=== PATIENT | male | born 1955 | race Caucasian/White ===

== ENCOUNTER 2018-10-04 13:23 | Day surgery (SDC) | payer OTHER ==
[~2018-10-04] VITALS: Ht 185.4 cm; Wt 106.6 kg
[~2018-10-04 13:23] MED LIST: GLYMET5 PO; ISOMON30 PO; LOSHYD PO; PIOG15 PO; PRAV10 PO; TAMS.4ER PO
[2018-10-04] MEDS ORDERED: AMLO10 PO (14:44)
[2018-10-04] MEDS ORDERED: COLACE CLEAR50 MG PO (14:44)
[2018-10-04] MEDS ORDERED: ATOR40TA PO (14:45)
[2018-10-04] MEDS ORDERED: JARDIANCE25 MG PO (14:45)
[2018-10-04] MEDS ORDERED: OXYC5 (14:46)
--- NOTE | 2018-10-04 15:41 | NUR ---
10/04/18 1541 Brit Grossman (Mary CASE DELAYED R/T INSTRUMENT CLEANING. LIDOCAINE GEL SLURRY HELD PER DR. SANDERS'S ORDERS. LIDOCAINE GEL SLURRY RESTARTED AND ADMINISTERED AT 1538 [address] SANDERS'S ORDERS.
== END 2018-10-04 17:10 | disposition home or self-care (01) ==
LOC: ORSCSDS 13:23
PROVIDERS: Ophthalmology
PROC: 08RK3JZ Replacement of Left Lens with Synthetic Substitute, Percutaneous Approach (ICD-10-PCS; principal; 2018-10-04 15:00)
DX: H25.12 Age-related nuclear cataract, left eye (principal); H21.81 Floppy iris syndrome; E11.36 Type 2 diabetes mellitus with diabetic cataract; I10 Essential (primary) hypertension; E66.9 Obesity, unspecified; F17.210 Nicotine dependence, cigarettes, uncomplicated; Z68.31 Body mass index [BMI] 31.0-31.9, adult; Z79.899 Other long term (current) drug therapy
CPT/HCPCS: 82947; J2001; J2250; J3010; J7120; V2632

== ENCOUNTER 2019-07-21 03:06 | Inpatient (IN) | payer OTHER ==
[~2019-07-21] VITALS: Ht 180.3 cm; Wt 86.4 kg
[~2019-07-21 03:06] MED LIST changes: +AMLO10 PO; +ATOR40TA PO; +COLACE CLEAR50 MG PO; +JARDIANCE25 MG PO; +OXYC5 PO
[2019-07-21] MEDS ORDERED: METF500 PO (03:48)
[2019-07-21] MEDS ORDERED: SENN187 PO (03:48)
[2019-07-21] MEDS ORDERED: GLYB2.5 PO (03:48)
[2019-07-21 03:50] LABS: BASOPHILS ABSOLUTE AUTO 0.05 K/mm3 (0.00-0.23); BASOPHILS PERCENT AUTO 0 % (0-2); EOSINOPHILS ABSOLUTE AUTO 0.11 K/mm3 (0.00-0.68); EOSINOPHILS PERCENT AUTO 1 % (0-6); Hematocrit 44.6 % (37.0-53.0); Hemoglobin 15.5 g/dL (13.5-17.5); IMMATURE GRAN ABSOLUTE AUTO 0.02 K/mm3 (0.00-0.10); IMMATURE GRAN PERCENT AUTO 0 % (0-1); LYMPHOCYTES ABSOLUTE AUTO 1.21 K/mm3 (0.84-5.20); LYMPHOCYTES PERCENT AUTO 10 % (21-46); MONOCYTES ABSOLUTE AUTO 1.16 K/mm3 (0.16-1.47); MONOCYTES PERCENT AUTO 9 % (4-13); Mean Corpuscular HGB 30.9 pg (26.0-34.0); Mean Corpuscular HGB Conc 34.8 g/dL (31.5-36.5); Mean Corpuscular Volume 89 fL (80-100); Mean Platelet Volume 10.8 fL (9.1-12.4); NEUTROPHILS ABSOLUTE AUTO 10.07 K/mm3 (1.96-9.15); NEUTROPHILS PERCENT AUTO 80 % (41-73); Platelet Count 195 K/mm3 (150-400); RDW Coefficient Variation 11.9 % (11.7-14.2); RDW Standard Deviation 38.7 fL (35.1-46.3); Red Blood Cell Count 5.01 M/mm3 (4.30-5.90); White Blood Cell Count 12.62 K/mm3 (4.00-11.30)
[2019-07-21] MEDS ORDERED: LOSARTAN-HCTZ1 EAC1 PO (03:56)
[2019-07-21 04:10] LABS: Alanine Aminotransfer (ALT/SGP 40 U/L (12-78); Albumin, Blood 2.9 g/dL (3.4-5.0); Albumin/Globulin Ratio 0.7 (0.8-1.8); Alk Phos 110 U/L (50-136); Anion Gap 8 mmol/L (6-16); Aspartate Aminotrans (AST/SGOT 18 U/L (12-37); Bilirubin, Total 0.8 mg/dL (0.1-1.0); Blood Urea Nitrogen 18 mg/dL (8-24); Bun/Creatinine Ratio 18.6 (12.0-20.0); CO2, Blood 27 mmol/L (21-32); Calcium, Blood 8.7 mg/dL (8.5-10.1); Chloride, Blood 102 mmol/L (98-108); Creatinine, Blood 0.97 mg/dL (0.60-1.20); Globulin, Blood 3.9 g/dL (2.2-4.0); Glomerular Filtration Rate >60 (60-); Glucose, Blood 286 mg/dL (70-99); Potassium, Blood 3.8 mmol/L (3.5-5.5); Sodium, Blood 137 mmol/L (136-145); Total Protein, Blood 6.8 g/dL (6.4-8.2)
--- NOTE | 2019-07-21 09:51 | NUR ---
Echocardiogram completed.
[2019-07-21 15:08] LABS: Source, Urine Clean Catch
[2019-07-21 15:13] LABS: Appearance, Urine Clear (Clear); Bilirubin, Urine Neg (Neg); Blood, Urine 2+ (Neg); Color, Urine Yellow (P-Yellow); Glucose Qualitative, Urine 4+ (Neg); Ketones, Urine 1+ (Neg); Leukocyte Esterase, Urine Neg (Neg); Nitrite, Urine Neg (Neg); Protein, Urine 3+ (Neg); Urobilinogen, Urine NORM (Normal)
[2019-07-21 15:37] LABS: Bacteria Rare /hpf; Hyaline Casts 0-2 /lpf (0-2); Red Blood Cells, Urine 0-2 /hpf (0-2); Squamous Epithelial Cells Few /hpf (Few); White Blood Cells, Urine 0-2 /hpf (0-5)
--- NOTE | 2019-07-21 18:27 | NUR ---
SHIFT SUMMARY PT ALERT AND ORIENTED. BP ELEVATED, BUT ORDERS NOT TO DECREASE QUICKLY DUE TO EMBOLIC STROKE. HR NSR. PT HAVING SPASTIC MOVEMENT TO LEFT LEG AND LEFT ARM, BUT NO VOLUNTARY MOVEMENT. RIGHT SIDE HAS NORMAL STRENGTH AND MOVEMENT. PT UNABLE TO SIT UP ON HIS OWN. PT REPOSITIONED NEEDED. PT WAS SUPPOSED TO HAVE MRI THIS EVENING, BUT ONCE PT WENT DOWN TO MRI HE VOMITTED. PT BROUGHT BACK AND SEMICONDUCTOR TECHNICIAN REPORTS HE WILL TRY [facility] TOMORROW. WILL CONTINUE TO MONITOR CLOSELY AND REPORT TO ONCOMING RN. CALL LIGHT IN REACH.
[2019-07-22 03:42] LABS: Hematocrit 43.5 % (37.0-53.0); Mean Corpuscular HGB 30.5 pg (26.0-34.0); Mean Corpuscular HGB Conc 34.5 g/dL (31.5-36.5); Mean Corpuscular Volume 88 fL (80-100); Mean Platelet Volume 11.2 fL (9.1-12.4); Platelet Count 213 K/mm3 (150-400); RDW Coefficient Variation 12.3 % (11.7-14.2); Red Blood Cell Count 4.92 M/mm3 (4.30-5.90); White Blood Cell Count 11.79 K/mm3 (4.00-11.30)
[2019-07-22 04:03] LABS: Alanine Aminotransfer (ALT/SGP 34 U/L (12-78); Albumin, Blood 2.8 g/dL (3.4-5.0); Albumin/Globulin Ratio 0.7 (0.8-1.8); Alk Phos 104 U/L (50-136); Anion Gap 6 mmol/L (6-16); Aspartate Aminotrans (AST/SGOT 25 U/L (12-37); Bilirubin, Total 0.7 mg/dL (0.1-1.0); Blood Urea Nitrogen 19 mg/dL (8-24); Bun/Creatinine Ratio 19.3 (12.0-20.0); CHOL/HDL RATIO 4.8; CO2, Blood 28 mmol/L (21-32); Calcium, Blood 8.7 mg/dL (8.5-10.1); Chloride, Blood 100 mmol/L (98-108); Cholesterol 190 mg/dL (50-200); Creatinine, Blood 0.98 mg/dL (0.60-1.20); Globulin, Blood 3.9 g/dL (2.2-4.0); Glomerular Filtration Rate >60 (60-); Glucose, Blood 341 mg/dL (70-99); HDL Cholesterol 40 mg/dL (>39); Low Density Lipoprotein Chol 122 mg/dL (0-110); Potassium, Blood 3.7 mmol/L (3.5-5.5); Sodium, Blood 134 mmol/L (136-145); Total Protein, Blood 6.7 g/dL (6.4-8.2); Triglycerides 141 mg/dL (30-160); Very Low Density Lipoprot Chol 28 mg/dL (6-32)
--- NOTE | 2019-07-22 06:38 | NUR ---
alert at base line, keeps asking if it is dinner time yet, have provided snacks and discussed the current time of day, pt called and asked her to help him move from the chair to the bed when he was already in the bed, he als stated that he thought he was home, call light in reach, rm air, will continue to monitor and treat unti share bsr with pt and staff
--- NOTE | 2019-07-22 17:58 | NUR ---
SHIFT SUMMARY PT ALERT AND ORIENTED. VS STABLE. BP IMPROVED THIS EVENING. HR NSR. PT STILL HAVING LEFT SIDED WEAKNESS UNCHANGED SINCE INITIAL ASSESSMENT. PT ABLE TO WORK WITH PHYSICAL THERAPY AND OT TODAY. PT WENT DOWN TO MRI THIS SHIFT. PT AWAITING RESULTS. WILL CONTINUE TO MONITOR AND REPORT TO ONCOMING RN. CALL LIGHT IN REACH. FAMILY AT BEDSIDE.
--- NOTE | 2019-07-22 19:43 | NUR ---
PATIENT GAVE PERMISSION TO VIEW CHART AND PATIENT CARE.
--- NOTE | 2019-07-23 07:08 | NUR ---
just treated for leg pain, anxious r/continuing treatment and what might be needed, call light in reach, saline locked, room air, L side remains flacid but warm with good profusion, alert and orintated at baseline, just finished bsr with returning day staff who assisted pt to straigten up bedding
--- NOTE | 2019-07-23 12:21 | NUR ---
UPDATE PT ALERT AND ORIENTED. VS STABLE. BP IMPROVED FROM THIS AM. CGB ELEVATED AND NEW ORDERS FOR LANTUS PROVIDED. PT AND EDUCATED ON NEW DIAGNOSIS OF STROKE. STATUS CHANGED TO MEDICAL. REPORT CALLED TO MEDICAL FLOOR RN. PT TAKEN UP BY BED.
--- NOTE | 2019-07-23 12:34 | NUR ---
TRANSFER- PT ARRIVED TO ROOM 361 VIA BED FROM U 16. PT A/O, PLEASANT AND COOPERATIVE. PT REPORTS 5/10 PAIN TO LEFT SIDE, NO OTHER COMPLAINTS. LS CLEAR, ON RA. HRR. LEFT ARM WITH SLIGHT MOVEMENT TO FINGERS, LEFT LEG FLACCID WITH SLIGHT MOVEMENT TO TOES. MOUTH SYMMETRICAL. SPEECH NORMAL. PT ORIENTED TO ROOM AND CALL SYSTEM, CALL LIGHT IN REACH.
--- NOTE | 2019-07-23 16:23 | NUR ---
PT WITH BLOOD GLUCOSE OF 495, PT CURRENTLY ON HUMALOG SAUNDRA WITH LANTUS STARTED THIS AM. DR CADE CALLED AND NOTIFIED, PER DR CADE SHE WILL ADJUST INSULINS. DR CADE ALSO NOTIFIED OF BP OF 171/78, SHE REPORTS SHE WILL LOOK OVER THE ORDERS.
--- NOTE | 2019-07-23 17:40 | NUR ---
SHIFT SUMMARY- PT A/OX3, FORGETUL AT TIMES AND OCC SLOW TO RESPOND. PT WITH LEFT SIDE FLACCID WITH LITTLE MOVEMENE TO TOES AND FINGERS. SPEECH NORMAL AND MOUTH SYMMETRICAL. LS CLEAR, ON RA. HRR. PRN HYDRALAZINE GIVEN X1. PT BLOOD GUCOSE 495 WITH DINNER, INSULINS ADJUSTED PER DR CADE. PT AWAITING SNF BED POSSIBLY TOMORROW.
[2019-07-24 04:53] LABS: Albumin, Blood 2.8 g/dL (3.4-5.0); Anion Gap 5 mmol/L (6-16); Blood Urea Nitrogen 23 mg/dL (8-24); Bun/Creatinine Ratio 24.8 (12.0-20.0); CO2, Blood 29 mmol/L (21-32); Calcium, Blood 8.9 mg/dL (8.5-10.1); Chloride, Blood 97 mmol/L (98-108); Creatinine, Blood 0.93 mg/dL (0.60-1.20); Glomerular Filtration Rate >60 (60-); Glucose, Blood 242 mg/dL (70-99); Phosphorus, Blood 3.5 mg/dL (2.5-4.9); Sodium, Blood 131 mmol/L (136-145)
--- NOTE | 2019-07-24 05:04 | NUR ---
SHIFT SUMMARY AOX3, FORGETFUL @TIMES, FOLLOWS DIRECTIONS. VSS. TELE IN PLACE, NSR W/PVC @67. DENIES DYSPNEA. HAS L SIDE DEFICET W/LLE BEING COMPLETELY FLACCID & LUE HAVING SLIGHT MOVEMENT OF FINGERS & GRAPHIC USER INTERFACE DESIGNER. HAS OCCASIONAL JERKY MUSCLE SPASMS T/O ALL EXTREMITIES. FELT NAUSEOUS & STARTED DRY HEAVING, MEDICATED 1X W/ZOFRAN & NO FURTHER NAUSEA. REPORTED PAIN IN BACK/L LEG, WAS MEDICATED 1X W/OXYCODONE & REPOSITIONED MULTIPLE TIMES PRN FOR COMFORT, THIS AM PT DENIES ANY PAIN. CBG @HS @218, PROVIDED 2U HUMALOG PER ORDERS. CONTINENT & USED URINAL AT LEAST 3X THIS SHIFT PER BILL DISTRIBUTOR. CALL LIGHT IN REACH & PT USES APPROPRIATELY.
--- NOTE | 2019-07-24 09:29 | NUR ---
HTN THIS MORNING NOTIFIED HOSPITALIST. PREVIOUS TO MORNING MEDICATIONS BP WAS 182/86. AFTER MORNING MEDICATIONS BP IS NOW 157/85.
--- NOTE | 2019-07-24 15:13 | NUR ---
CALLED HOSPITALIST PT ASKED ME IF HE COULD GO OUTSIDE TO SMOKE. I REPLIED THAT DUE TO OT'S REPORT OF DIZZYNESS WHEN HE SAT UP ON THE EDGE OF THE BED, AND HIM BEING MONITORED ON TELEMETRY - IT IS NOT ADVISED. I DID CALL THE HOSPITALIST FOR NICOTINE PATCHES AND PROVIDE THE PT W/HARDCOPY EDUCATION ON STROKE PREVENTION, DM2, AND SMOKING CESSATION/RISKS.
--- NOTE | 2019-07-24 16:12 | NUR ---
SHIFT SUMMARY PT AFFECT IS WITHDRAWN MOSTLY. NICOTINE PATCH ORDERED TODAY HE INFORMED ME HE SMOKES A PACK A DAY. CHERISETIC DC'D TODAY, APRESOLINE 3 X'S/DAY FOR HTN. HOPING FOR BETTER BLOOD SUGAR AND BLOOD PRESSURE CONTROL. HE STATED TO OT THAT HE FELT DIZZY WHEN HE SAT ON THE EDGE OF THE BED. WOOD COATER DID COME IN FOR CONSULT TODAY. PHYSICAL THERAPY DID STATE THEY FELT THERE WAS SOME MINOR IMPROVEMENTS IN MVMT OF THE LEFT SIDE EXTREMETIES TODAY. PLAN IS FOR DC TO [facility] FOR REHAB TOMORROW.
--- NOTE | 2019-07-24 22:01 | NUR ---
PATIENT LS WEAKNESS; UNABLE TO LIFT LEFT ARM AND LEFT LEG. CBG 263. TAKES MEDS WHOLE. SPOUSE LEFT FOR EVENING. WATCHING TV AT THIS TIME. CALL LIGHT IN REACH ON RIGHT SIDE.
--- NOTE | 2019-07-25 03:46 | NUR ---
SHIFT SUMMARY PATIENT CONTINUES TO HAVE LEFT SIDE WEAKNESS. UNABLE TO LIFT LEFT ARM AND LEFT LEG. AXOX 3 AND BEDFAST. REPORTED LEFT SHOULDER PAIN AND OXY 5 MG GIVEN PER EMAR. CBG 263. PIV REMAINS INTACT. SHEET METAL HELPER REPORTS SR 86. FAMILY PRESENT AT SHIFT CHANGE AND LEFT FOR EVENING. DENIES SOB AND N/V. CALL LIGHT IN REACH. BED IN LOWEST POSITION. WILL CONTINUE TO MONITOR UNTIL DAY SHIFT NURSE ASSUMES CARE.
[2019-07-25] MEDS ORDERED: CLOP75 PO (10:32)
[2019-07-25] MEDS ORDERED: ASPI81CH PO (10:32)
--- NOTE | 2019-07-25 10:38 | NUR ---
CALLED [facility]/HOSPITALIST THEY STATED NO ONE WAS AVAILABLE TO TAKE REPORT FOR THIS PT. THEY TOOK OUR PHONE NUMBER AND MY NAME AND STATED A NURSE WOULD CALL ME BACK. I DID INFORM THEM THAT TRANSPORT WOULD BE HERE TO TAKE THE PT TO THEM BETWEEN 11 AND 1200. I DID CALL HOSPITALIST TO REQUEST A HARD COPY PRESCRIPTION FOR [employer] TO SEND IN THE PACKET FOR [facility], SHE DID NOT ANSWER SO I LEFT A MESSAGE.
[2019-07-25] MEDS ORDERED: HYDRA25 PO (10:42)
[2019-07-25] MEDS ORDERED: BASAGLAR K100 UNIT/1 SC (10:42)
[2019-07-25] MEDS ORDERED: HUMALOG KW200 UNIT/1 SC (10:44)
[2019-07-25] MEDS ORDERED: HUMALOG KW200 UNIT/1 (10:47)
[2019-07-25] MEDS ORDERED: LOSA50 PO (10:48)
[2019-07-25] MEDS ORDERED: METO25ER PO (10:49)
[2019-07-25] MEDS ORDERED: LIDO700A20 TOP (10:50)
[2019-07-25] MEDS ORDERED: NICO21TP TOP (10:50)
[2019-07-25] MEDS ORDERED: MIRALAX17 GM PO (10:51)
[2019-07-25] MEDS ORDERED: Percocet 5-3251 EACH PO (10:51)
--- NOTE | 2019-07-25 11:41 | NUR ---
DISCHARGE NOTE [facility] ARRIVED TO [facility] TRANSPORT DRIVER PT. I DID ATTEMPT TO CALL HANDOFF TO [facility] BUT NO ONE WAS AVAILABLE TO TAKE REPORT, STATING THEY WOULD CALL BACK. I DID INFORM PROPERTY CLAIMS ADJUSTER. IV DC'D WNL. TELEMETRY DC'D. MEDICATIONS FAXED TO PREFERED PHARM[facility]Y. ONE HARDCOPY PRESCRIPTION INCLUDED IN PACKET THAT WAS SENT TO [facility] F[facility]ILITY. PERSONAL POSSESSIONS GATHERED BY FAMILY AND TAKEN BY THEM TO [facility]. FAMILY AND PT HAD NO FURTHER QUESTIONS.
--- NOTE | 2019-07-25 12:04 | NUR ---
[facility] NURSE CALLED FOR REPORT. REPORT GIVEN ON PT CARE. NURSE HAD NO FURTHER QUESTIONS.
== END 2019-07-25 11:39 | DRG 65 ==
LOC: ER 03:06 → PCU 05:41 → MEDS 05:41 → PCU 07:33 → MEDS 07-23 12:20 → ENPENDDIS 07-25 10:00 → MEDS 07-25 11:39
PROVIDERS: Emergency Medicine; Internal Medicine; ADMIT Internal Medicine
DX: I63.81 Other cerebral infarction due to occlusion or stenosis of small artery (principal); G81.94 Hemiplegia, unspecified affecting left nondominant side; I16.1 Hypertensive emergency; I10 Essential (primary) hypertension; E11.65 Type 2 diabetes mellitus with hyperglycemia; E78.5 Hyperlipidemia, unspecified; G35 Multiple sclerosis; I73.9 Peripheral vascular disease, unspecified; I65.21 Occlusion and stenosis of right carotid artery; I25.10 Atherosclerotic heart disease of native coronary artery without angina pectoris; G89.29 Other chronic pain; M54.9 Dorsalgia, unspecified; E66.9 Obesity, unspecified; Z68.34 Body mass index [BMI] 34.0-34.9, adult; Z79.84 Long term (current) use of oral hypoglycemic drugs; Z79.899 Other long term (current) drug therapy
CPT/HCPCS: 36415; 70450; 70544; 70551; 80053; 80061; 80069; 81001; 82947; 83036; 85025; 85027; 93005; 93010; 93306; 93880; 96374; 96375; 97110; 97112; 97162; 97166; 97530; 99285-25; J0360; J1650; J2405

== ENCOUNTER 2020-12-27 05:11 | Inpatient (IN) | payer MEDICARE, OTHER ==
[~2020-12-27] VITALS: Ht 185.4 cm; Wt 93.3 kg
[~2020-12-27 05:11] MED LIST changes: +ASPI81CH PO; +BASAGLAR K100 UNIT/1 SC; +CLOP75 PO; +GLYB2.5 PO; +HUMALOG KW100 UNIT/1 SC; +HUMALOG KW200 UNIT/1 SC; +HYDRA25 PO; +LIDO700A20 TOP; +LOSA50 PO; +LOSARTAN-HCTZ1 EAC1 PO; +METF500 PO; +METO50ER PO; +MIRALAX17 GM PO; +NICO21TP TOP; +Percocet 5-3251 EACH PO; +SENN187 PO
[2020-12-27 05:37] LABS: Source, Urine Catheter
[2020-12-27 05:38] LABS: BASOPHILS ABSOLUTE AUTO 0.04 K/mm3 (0.00-0.23); BASOPHILS PERCENT AUTO 0 % (0-2); EOSINOPHILS ABSOLUTE AUTO 0.15 K/mm3 (0.00-0.68); EOSINOPHILS PERCENT AUTO 1 % (0-6); Hematocrit 41.7 % (37.0-53.0); Hemoglobin 14.5 g/dL (13.5-17.5); IMMATURE GRAN ABSOLUTE AUTO 0.06 K/mm3 (0.00-0.10); IMMATURE GRAN PERCENT AUTO 1 % (0-1); LYMPHOCYTES ABSOLUTE AUTO 0.98 K/mm3 (0.84-5.20); LYMPHOCYTES PERCENT AUTO 9 % (21-46); MONOCYTES ABSOLUTE AUTO 1.92 K/mm3 (0.16-1.47); MONOCYTES PERCENT AUTO 17 % (4-13); Mean Corpuscular HGB 29.4 pg (26.0-34.0); Mean Corpuscular HGB Conc 34.8 g/dL (31.5-36.5); Mean Corpuscular Volume 84 fL (80-100); Mean Platelet Volume 9.9 fL (9.1-12.4); NEUTROPHILS ABSOLUTE AUTO 7.95 K/mm3 (1.96-9.15); NEUTROPHILS PERCENT AUTO 72 % (41-73); Platelet Count 356 K/mm3 (150-400); RDW Coefficient Variation 13.3 % (11.7-14.2); Red Blood Cell Count 4.94 M/mm3 (4.30-5.90)
[2020-12-27 05:43] LABS: Bilirubin, Urine Neg (Neg); Blood, Urine 4+ (Neg); Glucose Qualitative, Urine 2+ (Neg); Ketones, Urine 1+ (Neg); Leukocyte Esterase, Urine 3+ (Neg); Nitrite, Urine Neg (Neg); Protein, Urine 3+ (Neg); Specific Gravity, Urine 1.025 (1.003-1.022); Urobilinogen, Urine NORM (Normal)
[2020-12-27 05:49] LABS: Appearance, Urine Turbid (Clear); Color, Urine Pale Yellow (P-Yellow)
[2020-12-27 05:52] LABS: Bacteria Many /hpf; Red Blood Cells, Urine Rare /hpf (0-2); Squamous Epithelial Cells Not Seen /hpf (Few); White Blood Cells, Urine TNTC /hpf (0-5)
[2020-12-27] MEDS ORDERED: XARELTO20 MG PO (05:58)
[2020-12-27] MEDS ORDERED: LOSA25 PO (05:58)
[2020-12-27] MEDS ORDERED: LAMO25 PO (05:59)
[2020-12-27 06:03] LABS: Bun/Creatinine Ratio 25.2 (12.0-20.0); Calcium, Blood 8.4 mg/dL (8.5-10.1); Creatinine, Blood 3.77 mg/dL (0.60-1.20); Potassium, Blood 4.2 mmol/L (3.5-5.5)
[2020-12-27] MEDS ORDERED: LIPITOR80 MG PO (07:19)
[2020-12-27] MEDS ORDERED: MONDOXYNE NL100 MG PO (07:19)
[2020-12-27] MEDS ORDERED: Lamictal150 MG PO (07:20)
[2020-12-27] MEDS ORDERED: AMLODIPINE BESY10 MG PO (07:20)
[2020-12-27 07:55] LABS: Influenza A, PCR NEGATIVE (NEGATIVE); Influenza B, PCR NEGATIVE (NEGATIVE); Resp Syncytial Virus, PCR NEGATIVE (NEGATIVE); SARS-Cov-2 (COVID-19) PCR, MMC NEGATIVE (NEGATIVE)
[2020-12-27 09:37] LABS: Albumin, Blood 2.2 g/dL (3.4-5.0); Albumin/Globulin Ratio 0.5 (0.8-1.8); Bilirubin, Total 0.7 mg/dL (0.1-1.0); Bun/Creatinine Ratio 27.5 (12.0-20.0); Creatinine, Blood 3.42 mg/dL (0.60-1.20); Globulin, Blood 4.4 g/dL (2.2-4.0); Potassium, Blood 3.8 mmol/L (3.5-5.5); Total Protein, Blood 6.6 g/dL (6.4-8.2)
--- NOTE | 2020-12-27 11:50 | NUR ---
PT ADMITTED FROM ED 1004- PT IS ALERT AND VERBAL, SPEECH SLOW. PT IS CONFUSED BUT JOVIAL AND COOPERATIVE. LG INCONT, ENTIRE BED CHANGE. ORIENTED TO ROOM SET UP AND SAFETY. BED ALARM SET. STARTED IVF AND GIVEN AM MEDS. SWALLOWS PILLS WITH APPLESAUCE, CHEWS PILLS AND SWALLOWED WITH WATER. NO FAMILY, ONLY PARTIAL HX COMPLETE.
--- NOTE | 2020-12-27 17:10 | NUR ---
Pt watching TV with at his side. Symptom assessment pt states he is some time having headaches, no ringining in ears no vision changes some blance issues when in chair. He is sleeping more. Denies difficulty swallowing states he has good appetite wanted a snack. Got him one with permission from RN. He has some mild nausea at times no consitpation. chronic pain to back and legs. He twitches often. He sees his primary care doctor regularly and has telmedicine with [facility] neurology. states they need to go up there to appointment but she has not been able to get him there. She has a polst and AD and would like to review them. She forgot to birng them in. She looks exhaused and mentioned three times he needs placement. Will review with her tomorrow hopefully and have chaplian see her for her stress.
--- NOTE | 2020-12-27 18:20 | NUR ---
SUMMARY- PT DEPENDANT IN CARE. TURNED ROUTINE AND CHANGED INCONT. PT HAS REDDENED COCCYX BUT BLANCHES. TURNED OFF BOTTOEM AND FLOATED HEALS. SET UP AND ASSIST IN CUES TO FEED SELF OR GIVE PT BITES. PT WITH L SIDE DEFICITS AND SPEECH DELAYS. PLEASANTLY CONFUSED BUT COOPERATIVE AND KNOWS LIMITS. NO ATTEMPES TO GET OOB. HERE TO VISIT FOR A FEW AHOUR ABOUT [phone], PLEASANT AND INVOLVED IN CARE. IVF INFUSING. WILL REPORT TO NOC RN.
--- NOTE | 2020-12-28 04:18 | NUR ---
SHIFT SUMMARY: VSS. AFEB. 02 96% ON RA. AA0 TO SELF AND FAMILY. DISORIENTED TO DATE, LOCATION, AND SITUATION. REORIENTS WELL. CALLS OUT FOR MANY TIMES TONIGHT, FORGETING HE IS IN THE HOSPITAL. WILL SUDDENLY YELL AT STAFF UNEXPECTEDLY, THIS LASTS A MOMENT, THEN PT RETURNS TO SPEAKING IN A NORMAL TONE. FREQUENTLY HITS ONE HAND ON THE TOP OF THE OTHER WHILE RESTING. DENIES PAIN. VERY STIFF AND RESISTANT W/ TURNS IN BED. DOES NOT COMMUNICATE TO STAFF WHEN INCONTINENT. SLEPT INTERMITTENTLY TONIGHT. IV MAINTENANCE FLUIDS INFUSING CONTINUOUSLY PER ORDERS. NSR, 75 PER TELE PROTECTION MANAGER. NO ACUTE OVERNIGHT EVENTS. WCTM.
[2020-12-28 05:24] LABS: BASOPHILS ABSOLUTE AUTO 0.02 K/mm3 (0.00-0.23); BASOPHILS PERCENT AUTO 0 % (0-2); EOSINOPHILS ABSOLUTE AUTO 0.24 K/mm3 (0.00-0.68); EOSINOPHILS PERCENT AUTO 3 % (0-6); Hematocrit 36.6 % (37.0-53.0); Hemoglobin 12.5 g/dL (13.5-17.5); IMMATURE GRAN ABSOLUTE AUTO 0.05 K/mm3 (0.00-0.10); IMMATURE GRAN PERCENT AUTO 1 % (0-1); LYMPHOCYTES ABSOLUTE AUTO 0.66 K/mm3 (0.84-5.20); LYMPHOCYTES PERCENT AUTO 7 % (21-46); MONOCYTES ABSOLUTE AUTO 1.35 K/mm3 (0.16-1.47); MONOCYTES PERCENT AUTO 15 % (4-13); Mean Corpuscular HGB 29.4 pg (26.0-34.0); Mean Corpuscular HGB Conc 34.2 g/dL (31.5-36.5); Mean Corpuscular Volume 86 fL (80-100); Mean Platelet Volume 9.8 fL (9.1-12.4); NEUTROPHILS ABSOLUTE AUTO 6.64 K/mm3 (1.96-9.15); NEUTROPHILS PERCENT AUTO 74 % (41-73); Platelet Count 359 K/mm3 (150-400); RDW Coefficient Variation 13.2 % (11.7-14.2); RDW Standard Deviation 41.6 fL (35.1-46.3); Red Blood Cell Count 4.25 M/mm3 (4.30-5.90); White Blood Cell Count 8.96 K/mm3 (4.00-11.30)
[2020-12-28 05:47] LABS: Bun/Creatinine Ratio 27.6 (12.0-20.0); Calcium, Blood 7.9 mg/dL (8.5-10.1); Creatinine, Blood 3.41 mg/dL (0.60-1.20); Potassium, Blood 3.8 mmol/L (3.5-5.5)
[2020-12-28 11:13] LABS: Percent Saturation 27.8 % (20.0-50.0)
--- NOTE | 2020-12-28 17:48 | NUR ---
Pt at bedside brought in his advance directive that states he would not want life support. He also had a POA that was current. He had an old polst from his physicians office that said full treatment. We did a new polst that is DNR and limited medical treatment. Pt still showing great fatigue and stress. She just sold their house and is doing medicaid process for pt. She was tearful and asked if he is hospice ready. Switched the focus on her stress and needs and having a future. We discussed where she was going to live and have security. She has been dicussing several options of living by her children. Her daughter lives in [place] we discussed getting him placed in [place]. She though tat would be imposible because of getting a physician to care for him. Advised her to consider it. She texed her daughter about a possible plan. He may be better served for quility of life he has left on hospice near his children. Will review with car managers and hospitalist for further support . Pt resting comfortable minimal interaction with . Will update pt nurse.
--- NOTE | 2020-12-28 17:52 | NUR ---
ALERT TO SELF AND FAMILY. INCONTINENT URINE AND BOWEL WITH PATIENT UNAWARE . IV INFUSING AT 100ML/HR. INFORMED OF POSSIBLE HARD MASS ABD WHICH PATIENT DENIED ANY PAIN. OVER EMOTIONAL. WILL YELL "THAT HURTS" WHEN TOUCHED. COCCYX RED. PER AND JUNG RN IN PALLIATIVE CARE CHANGED TO DNR. UNLABORED RESPIRATIONS. NO ACUTE CHANGES. WCTM
--- NOTE | 2020-12-29 04:13 | NUR ---
SHIFT SUMMARY ADMITTED FOR WEAKNESS/UTI. DNR CODE. PLAN IS POSSIBLY FOR PLACEMENT VS HOSPICE. PT IS CONFUSED, STARTLES EASILY AND YELLS - LABILE EMOTIONS. HE IS BEDRIDDEN, INCONTINENT. IV FLUIDS INFUSING ORDERED. HE IS ON XARELTO. PREVIOUSLY LIVED AT HOME WITH , BUT SHE CAN NO LONGER CARE FOR HIM.
[2020-12-29 05:04] LABS: BASOPHILS ABSOLUTE AUTO 0.03 K/mm3 (0.00-0.23); BASOPHILS PERCENT AUTO 0 % (0-2); EOSINOPHILS ABSOLUTE AUTO 0.19 K/mm3 (0.00-0.68); EOSINOPHILS PERCENT AUTO 2 % (0-6); Hematocrit 35.8 % (37.0-53.0); Hemoglobin 12.3 g/dL (13.5-17.5); IMMATURE GRAN ABSOLUTE AUTO 0.06 K/mm3 (0.00-0.10); IMMATURE GRAN PERCENT AUTO 1 % (0-1); LYMPHOCYTES ABSOLUTE AUTO 0.62 K/mm3 (0.84-5.20); LYMPHOCYTES PERCENT AUTO 7 % (21-46); MONOCYTES PERCENT AUTO 15 % (4-13); Mean Corpuscular HGB 29.6 pg (26.0-34.0); Mean Corpuscular HGB Conc 34.4 g/dL (31.5-36.5); Mean Corpuscular Volume 86 fL (80-100); Mean Platelet Volume 9.7 fL (9.1-12.4); NEUTROPHILS ABSOLUTE AUTO 6.58 K/mm3 (1.96-9.15); NEUTROPHILS PERCENT AUTO 75 % (41-73); Platelet Count 375 K/mm3 (150-400); RDW Coefficient Variation 13.2 % (11.7-14.2); Red Blood Cell Count 4.15 M/mm3 (4.30-5.90); White Blood Cell Count 8.78 K/mm3 (4.00-11.30)
[2020-12-29 05:24] LABS: Albumin/Globulin Ratio 0.5 (0.8-1.8); Bilirubin, Total 0.5 mg/dL (0.1-1.0); Bun/Creatinine Ratio 24.7 (12.0-20.0); Calcium, Blood 7.7 mg/dL (8.5-10.1); Creatinine, Blood 3.68 mg/dL (0.60-1.20); Globulin, Blood 4.2 g/dL (2.2-4.0); Total Protein, Blood 6.2 g/dL (6.4-8.2)
[2020-12-29 15:29] LABS: Source, Urine Catheter
--- NOTE | 2020-12-29 15:30 | NUR ---
RECIEVED A CALL FROM DR OLMEDO- CT SCAN SHOWED A SEVERELY DISTENDED BLADDER CUELLAR CATH PLACED BY 2 RN'S, STERILE TECHNIQUE MAINTAINED. PT TOLLERATED THE PLACEMENT WELL. URINE FLASH OBTAINED AND CATH ADVANCED AN ADDITIONAL INCH. BALOON INFLATED. URINE FLASH WAS WHITE AND WEBER WITH A YELLOW TINGE. SAMPLE OBTAINED PER PROTOCOL AND SENT TO THE LAB.
[2020-12-29 16:06] LABS: Appearance, Urine Cloudy (Clear); Bilirubin, Urine Neg (Neg); Blood, Urine 5+ (Neg); Color, Urine Yellow (P-Yellow); Glucose Qualitative, Urine 4+ (Neg); Ketones, Urine Neg (Neg); Leukocyte Esterase, Urine 3+ (Neg); Nitrite, Urine Pos (Neg); Protein, Urine 3+ (Neg); Urobilinogen, Urine NORM (Normal)
--- NOTE | 2020-12-29 16:43 | NUR ---
CALLED DR BLAIR- PT HAS HAD 2500 OUT IN THE CUELLAR SINCE PLACEMENT. URINE WAS WHITE AND WEBER WITH A BIT OF YELLOW, THEN PINK/ORANGE, THEN PINK WITH HEAVY SEDIMENT, NOW URINE WAS NOTED TO HAVE SEVERAL SMALL BLOOD CLOTS IN IT. DR BLAIR CALLED BACK AND SHE IS AWARE. STAFF ARE TO CONTINUE TO MONITOR FOR ANY SIGNS OF OBSTURCTION IN THE CATH. OUTPUT IS STILL HIGH CURRENTLY. WILL CTM.
[2020-12-29 17:02] LABS: Red Blood Cells, Urine TNTC /hpf (0-2); Squamous Epithelial Cells Not Seen /hpf (Few); White Blood Cells, Urine TNTC /hpf (0-5)
[2020-12-29 17:04] LABS: Bacteria Many /hpf
--- NOTE | 2020-12-29 19:26 | NUR ---
SHIFT SUMMARY- PT ALERT AND ORIENTED TO SELF AND FAMILY. MEDICATED WITH TYLENOL FOR A HEADACHE EARLIER IN THE SHIFT. CUELLAR CATH WAS PLACED PER DR ORDER. PT WILL BE GOING HOME WITH THE CUELLAR IN PLACE. AWARE OF THE PINK URINE WITH CLOTS. CUELLAR STILL IN PLACE PATENT AND DRAINING AT THIS TIME NIGHT RN AWARE TO WATCH FOR SIGNS OF OBSTRUCTION. PT PULLED OUT HIS IV, DR NOTIFIED, PT STILL NEEDS A NEW IV. ELECTRICAL INSPECTOR ATTEMPTED IV START TWICE, PT WILL NEED ULTRASOUND ASSISTANCE TO ACHIEVE A GOOD IV PER ELECTRICAL INSPECTOR PETEY. PT IN BED CALL LIGHT IN REACH NIGHT RN AWARE OF THE NEED FOR A NEW IV.
--- NOTE | 2020-12-30 05:24 | NUR ---
SHIFT SUMMARY ADMITTED FOR URINARY RETENTION/UTI. PT IS A DNR. LOOKING FOR PLACEMENT. IV ANTIBIOTICS SCHEDULED. ALERT AND ORIENTED TO SELF AND FAMILY, WHICH IS BASELINE. CUELLAR IN PLACE AND DRAINING WITH LARGE OUTPUT. PT ON BEDREST. NO OTHER CONCERNS THIS SHIFT.
--- NOTE | 2020-12-30 05:53 | NUR ---
DOMESTIC TRAVEL CONSULTANT/CTA I HAVE ROUNDED WITH THIS STUDENT. I HAVE PERSONALLY ASSESSED THIS PT AND I HAVE READ THIS STUDENT'S CHARTING. I AGREE WITH THIS STUDENT'S ASSESSMENT
[2020-12-30 06:58] LABS: Hematocrit 36.1 % (37.0-53.0); Hemoglobin 12.2 g/dL (13.5-17.5)
[2020-12-30 07:16] LABS: Anion Gap 8 mmol/L (6-16); Blood Urea Nitrogen 72 mg/dL (8-24); Bun/Creatinine Ratio 29.1 (12.0-20.0); CO2, Blood 20 mmol/L (21-32); Calcium, Blood 8.3 mg/dL (8.5-10.1); Chloride, Blood 110 mmol/L (98-108); Creatinine, Blood 2.47 mg/dL (0.60-1.20); Glomerular Filtration Rate 28 (60-); Glucose, Blood 137 mg/dL (70-99); Phosphorus, Blood 3.6 mg/dL (2.5-4.9); Potassium, Blood 4.4 mmol/L (3.5-5.5); Sodium, Blood 138 mmol/L (136-145)
--- NOTE | 2020-12-30 14:05 | NUR ---
Pt has slight headache and achey today. Encouraged him to drink more water. Affect a little brighter today more eye contact. will meet with his when she comes in and have elvis visit her.
--- NOTE | 2020-12-30 17:24 | NUR ---
PATIENT ALERT WITH CONFUSION. PLEASANT AND COOPERATIVE WITH STAFF. SLEPT ON AND OFF THROUGH-OUT THE SHIFT. NO INDICATION OF PAIN OR DISCOMFORT NOTED. CONTINUES ON IV ABX WITHOUT S/SX ADVERSE REACTIONS NOTED OR REPORTED. OCCASIONALLY CALLS OUT FOR BUT IS RE-DIRECTABLE. NO ACUTE CHANGES TO REPORT OF AT THIS TIME. CUELLAR PATENT AND DRAINING TO GRAVITY. CALL LIGHT IN REACH.
--- NOTE | 2020-12-31 04:17 | NUR ---
SHIFT SUMMARY- PT. A&OX2, OTHERWISE PLEASANTLY CONFUSED. PT. YELLS OUT OCCASIONALLY FOR BUT ABLE TO REDIRECT. CUELLAR CATHETER IN PLACE, PATENT, AND DRAINING. NO ABD DISTENTION NOTED. PT. ON BEDREST, REPOSTIONED FOR COMFORT AND PRN. DENIED ANY PAIN OR DISCOMFORT T/O THE NIGHT. SLEPT ON/OFF DURING THE NIGHT, NO APPARENT DISTRESS NOTED. VSS. CALL LIGHT WITHIN REACH, SIDE RAILS UPX2, AND BED ALARM ON FOR SAFETY. WILL CONT TO MONITOR.
[2020-12-31 05:46] LABS: BASOPHILS ABSOLUTE AUTO 0.06 K/mm3 (0.00-0.23); BASOPHILS PERCENT AUTO 1 % (0-2); EOSINOPHILS ABSOLUTE AUTO 0.26 K/mm3 (0.00-0.68); EOSINOPHILS PERCENT AUTO 2 % (0-6); Hematocrit 32.5 % (37.0-53.0); Hemoglobin 11.3 g/dL (13.5-17.5); IMMATURE GRAN ABSOLUTE AUTO 0.23 K/mm3 (0.00-0.10); IMMATURE GRAN PERCENT AUTO 2 % (0-1); LYMPHOCYTES ABSOLUTE AUTO 1.09 K/mm3 (0.84-5.20); LYMPHOCYTES PERCENT AUTO 8 % (21-46); MONOCYTES ABSOLUTE AUTO 1.59 K/mm3 (0.16-1.47); MONOCYTES PERCENT AUTO 12 % (4-13); Mean Corpuscular HGB 29.9 pg (26.0-34.0); Mean Corpuscular HGB Conc 34.8 g/dL (31.5-36.5); Mean Corpuscular Volume 86 fL (80-100); Mean Platelet Volume 9.2 fL (9.1-12.4); NEUTROPHILS ABSOLUTE AUTO 10.02 K/mm3 (1.96-9.15); NEUTROPHILS PERCENT AUTO 76 % (41-73); Platelet Count 406 K/mm3 (150-400); RDW Coefficient Variation 13.2 % (11.7-14.2); RDW Standard Deviation 42.1 fL (35.1-46.3); Red Blood Cell Count 3.78 M/mm3 (4.30-5.90); White Blood Cell Count 13.25 K/mm3 (4.00-11.30)
[2020-12-31 06:23] LABS: Albumin, Blood 1.9 g/dL (3.4-5.0); Anion Gap 7 mmol/L (6-16); Blood Urea Nitrogen 45 mg/dL (8-24); Bun/Creatinine Ratio 33.6 (12.0-20.0); CO2, Blood 20 mmol/L (21-32); Calcium, Blood 7.7 mg/dL (8.5-10.1); Chloride, Blood 111 mmol/L (98-108); Creatinine, Blood 1.34 mg/dL (0.60-1.20); Glomerular Filtration Rate 57 (60-); Glucose, Blood 132 mg/dL (70-99); Phosphorus, Blood 2.4 mg/dL (2.5-4.9); Potassium, Blood 3.9 mmol/L (3.5-5.5); Sodium, Blood 138 mmol/L (136-145)
--- NOTE | 2020-12-31 18:24 | NUR ---
SHIFT SUMMARY DENIES PAIN, NAUSEA, AND SHORTNESS OF BREATH. EATING AND DRINKING WELL. TWO PERSON MAX TO CHAIR AND REPOSITION IN BED. ORIENTED X2, PLEASANT AND COOPERATIVE WITH CARE. VISITED IN AFTERNOON. PENDING ASSISTED LIVING PLACEMENT.
[2021-01-01 05:32] LABS: Hematocrit 32.4 % (37.0-53.0); Hemoglobin 11.1 g/dL (13.5-17.5); Mean Corpuscular HGB 29.4 pg (26.0-34.0); Mean Corpuscular HGB Conc 34.3 g/dL (31.5-36.5); Mean Corpuscular Volume 86 fL (80-100); Mean Platelet Volume 9.1 fL (9.1-12.4); Platelet Count 457 K/mm3 (150-400); RDW Coefficient Variation 13.2 % (11.7-14.2); RDW Standard Deviation 41.8 fL (35.1-46.3); Red Blood Cell Count 3.78 M/mm3 (4.30-5.90); White Blood Cell Count 13.97 K/mm3 (4.00-11.30)
--- NOTE | 2021-01-01 05:49 | NUR ---
SHIFT SUMMARY- NO ACUTE EVENTS OVERNIGHT. PT. AWAKE MOST OF THE SHIFT, DENIED ANY COMPLAINTS OF PAIN TO DISCOMFORT. SCHEDULED NIGHT TIME MEDS TAKEN W/O DIFFICULT. CUELLAR CATHETER PATENT AND DRAINING, VSS. CALL LIGHT WITHIN REACH AND SIDE RAILS UPX2. WILL CONT TO MONITOR.
[2021-01-01 05:55] LABS: Albumin, Blood 2.1 g/dL (3.4-5.0); Anion Gap 10 mmol/L (6-16); Blood Urea Nitrogen 32 mg/dL (8-24); Bun/Creatinine Ratio 27.4 (12.0-20.0); CO2, Blood 21 mmol/L (21-32); Calcium, Blood 7.8 mg/dL (8.5-10.1); Chloride, Blood 106 mmol/L (98-108); Creatinine, Blood 1.17 mg/dL (0.60-1.20); Glomerular Filtration Rate >60 (60-); Glucose, Blood 145 mg/dL (70-99); Phosphorus, Blood 2.6 mg/dL (2.5-4.9); Potassium, Blood 3.8 mmol/L (3.5-5.5); Sodium, Blood 137 mmol/L (136-145)
--- NOTE | 2021-01-01 14:41 | NUR ---
new iv required due to pt removing old one, no comment just came in and it was no longer in pt's arm, swore and yelled when iv started but did not pull arm away, has acted angry and confused multiple times during shift but quickly recovers if spoken to quietly
--- NOTE | 2021-01-01 18:12 | NUR ---
yells but is not violent, young draining well, call light in reach, rm air, saline locked, no acute changes noted during shift, family in to visit, will continue to monitor and treat until share bsr with noc nurse and pt
--- NOTE | 2021-01-02 01:43 | NUR ---
PHYSICIAN COMMUNICATION CONTACTED WHARF HELPER PHYSICIAN, DR VERONICA, TO NOTIFY HER THAT THE PATIENT WAS VERY CONFUSED AND HAD JUST PULLED OUT HIS CUELLAR CATHETER FOR THE SECOND TIME TONIGHT. DR VERONICA ORDERED FOR THE PATIENT TO BE PLACED IN SOFT WRIST RESTRAINTS.
--- NOTE | 2021-01-02 06:13 | NUR ---
SHIFT SUMMARY PATIENT VERY CONFUSED OVERNIGHT. HE PULLED OUT HIS CATHETER TWICE DURING THE NIGHT RESULTING IN A LARGE AMOUNT OF BLOOD COMING FROM HIS URETHRA FROM THE TRAUMA. PATIENT WAS PLACED IN SOFT WRIST RESTRAINTS TO PREVENT HIM FROM DOING IT AGAIN. IV PATENT AND FLUSHED. BED IN LOWEST POSITION WITH WHEELS LOCKED AND ALARM ON. CALL LIGHT WITHIN REACH. REPORT GIVEN TO ONCOMING RN.
--- NOTE | 2021-01-02 18:23 | NUR ---
oriantated to self, remains in wrist restraints due to pt's lack of self restraint, acts then appologizes, call light in reach, rm air, saline locked, will continue to monitor and treat until share bsr with pt and noc nurse, no acute changes noted during shift, family stated they understood and supported keeping pt from hurting himself
--- NOTE | 2021-01-03 05:42 | NUR ---
SHIFT SUMMARY PATIENT ALERT AND ORIENTED TO SELF. HAS DIFFICULTY COMPREHENDING AND FOLLOWING DIRECTIONS. PATIENT NO LONGER IN WRIST RESTRAINTS. HAS BEEN LYING QUIETLY AND NOT TRYING TO PULL ON HIS CATHETER. NO COMPLAINTS OF PAIN OR SHORTNESS OF BREATH. IV PATENT AND FLUSHED. BED IN LOWEST POSITION WITH WHEELS LOCKED AND ALARM ON. CALL LIGHT WITHIN REACH. REPORT GIVEN TO ONCOMING RN.
--- NOTE | 2021-01-03 10:40 | NUR ---
Short visit with patient no headaches today or discomfort. Will follow up with and review prognosis with physical therapy. goal i placement in [place] so can be near her childres and eventual transition to hospice.
--- NOTE | 2021-01-03 17:58 | NUR ---
trouble urinating today, adjusted catheter and pt was able to discharge 1100ml of yellow urine slightly cloudy, stated procedure hurt like """" but was able to limit his response to squeezing nurses hand, no other change noted during shift, call light in reach, rm air, medicated as prescribed, saline locked, will continue to monitor and treat until share bsr with noc nurse and pt
--- NOTE | 2021-01-04 05:45 | NUR ---
SHIFT SUMMARY PATIENT ALERT AND ORIENTED TO SELF, HAS DIFFICULTY FOLLOWING DIRECTIONS. HAD NO COMPLAINTS OF PAIN OR SHORTNESS OF BREATH. PATIENT SLEPT WELL OVERNIGHT. CUELLAR IS PATENT AND DRAINING. IV PATENT AND FLUSHED. BED IN LOWEST POSITION WITH WHEELS LOCKED AND ALARM ON. CALL LIGHT WITHIN REACH. REPORT GIVEN TO ONCOMING RN.
--- NOTE | 2021-01-04 17:42 | NUR ---
PATIENT A/O TO SELF AND FAMILY ONLY, [place] AND SLOW TO RESPOND. AWAITING PLACEMENT. WORKING WITH PT/OT. PATIENT IS CURRENTLY A 2 MAX ASSIST TO CHAIR. VSS, ON RA. TAKES PILLS WHOLE WITH APPLESAUCE. ABLE TO FEED SELF, BUT DOES REQUIRE ASSISTANCE WITH MEAL SETUP. SCATTERED BRUISING WITH REDNESS TO COCCYX, Q2 TURNS. TYLENOL GIVEN X1 TODAY FOR LLE PAIN. ACHS BLOOD SUGARS, ERQUIRED COVERAGE WITH ALL MEALS. IV TO RAC WNL AND SL. CUELLAR TO GRAVITY, ADEQUATE U/O. FALL PRECAUTIONS IN PLACE.
--- NOTE | 2021-01-05 05:38 | NUR ---
SUMMARY: PT ORIENTED TO SELF AND FAMILY ONLY. [place] FORGETFULL AND CALLS OFTEN INTO HALLS FOR REPEATED NON-ACUTE AND UNSPECIFIED NEEDS. HE'S 2PA W/REPOSITIONING D/T BEING STIFF AND RESISTANT TO TURNING. Q2H TURN SCHEDULE MAINTAINED AND L.SIDE WEAKNESS NOTED FROM HX CVA. SCATTERED BRUISES AND REDNESS TO COCCYX OBSERVED. IV SL AND CUELLAR PATENT/DRAINING. PT DENIED PAIN AND COMPLAINTS. BED ALARM ON FOR FALL RISK. NO ACUTE CHANGES, VSS/AFEBRILE. PLACEMENT PENDING. WCTM AND REPORT TO DAY RN.
--- NOTE | 2021-01-05 19:50 | NUR ---
SHIFT SUMMARY PT COOPERATIVE WITH CARE LONG AND ITS EXPLAINED CLEARLY PRIOR TO CARE. HARD OF HEARING. DRESSING CHANGED TO COCCYX AND PHOTO TAKEN. DENIES PAIN OR DISTRESS. FOUND WITH CUELLAR REMOVED FROM STAT LOCK AND SMALL AMOUNT OF BLOOD AT MEATUS. REATTACHED AND IT HAS REMAINED UNTOUCHED SINCE.
[2021-01-06 05:32] LABS: Hematocrit 30.1 % (37.0-53.0); Hemoglobin 10.1 g/dL (13.5-17.5); Mean Corpuscular HGB 29.4 pg (26.0-34.0); Mean Corpuscular HGB Conc 33.6 g/dL (31.5-36.5); Mean Corpuscular Volume 88 fL (80-100); Mean Platelet Volume 9.2 fL (9.1-12.4); Platelet Count 447 K/mm3 (150-400); RDW Coefficient Variation 13.6 % (11.7-14.2); RDW Standard Deviation 43.8 fL (35.1-46.3); Red Blood Cell Count 3.43 M/mm3 (4.30-5.90); White Blood Cell Count 16.51 K/mm3 (4.00-11.30)
[2021-01-06 05:50] LABS: Albumin, Blood 2.4 g/dL (3.4-5.0); Anion Gap 5 mmol/L (6-16); Blood Urea Nitrogen 23 mg/dL (8-24); Bun/Creatinine Ratio 27.1 (12.0-20.0); CO2, Blood 27 mmol/L (21-32); Calcium, Blood 8.4 mg/dL (8.5-10.1); Chloride, Blood 101 mmol/L (98-108); Creatinine, Blood 0.85 mg/dL (0.60-1.20); Glomerular Filtration Rate >60 (60-); Glucose, Blood 220 mg/dL (70-99); Phosphorus, Blood 3.2 mg/dL (2.5-4.9); Potassium, Blood 4.3 mmol/L (3.5-5.5); Sodium, Blood 133 mmol/L (136-145)
--- NOTE | 2021-01-06 06:35 | NUR ---
SHIFT SUMMARY PT IS A 65 Y/O MALE, ADMITTED FOR UTI. HE IS A&O X 2, CONFUSED AND FORGETFUL AT TIMES. 2P STAND AND PIVOT. PT HAS A CUELLAR IN PLACE, WITH MINIMAL OUTPUT UNTIL FLUSHED THIS AM. SEVERAL SMALL BLOOD CLOTS NOTED. NO C/O ACUTE PAIN, NAUSEA OR SOB. VITAL SIGNS STABLE. NO OTHER ACUTE CHANGES IN PT CONDITION NOTED. WILL CONTINUE TO MONITOR AND TREAT PER EMAR UNTIL HAND OFF TO DAY SHIFT RN.
--- NOTE | 2021-01-06 17:08 | NUR ---
SHIFT SUMMARY PT REPOSITIONED AND WAS COOPERATIVE WITH CARE. PT YELLED AND FOUND PULLING ON HIS CATHETER. REMOVED PER AUTOMATIC BLOCKER RECOMMENDATION DUE TO APPEARING SENIOR CARE OUT. IN ROOM AND WHEN SHE ATTEMPTED TO STOP HIM HE YELLED AT HER. SPOKE WITH DR. VERGARA. HE REPORTED TO MONITER FOR URINE OUTPUT AND BLADDER SCAN POST VOID OR IF NO VOID AND TO REPLACE IF UNABLE TO VOID.
[2021-01-07 05:52] LABS: BASOPHILS ABSOLUTE AUTO 0.06 K/mm3 (0.00-0.23); BASOPHILS PERCENT AUTO 1 % (0-2); EOSINOPHILS ABSOLUTE AUTO 0.19 K/mm3 (0.00-0.68); EOSINOPHILS PERCENT AUTO 2 % (0-6); Hematocrit 26.9 % (37.0-53.0); IMMATURE GRAN ABSOLUTE AUTO 0.07 K/mm3 (0.00-0.10); IMMATURE GRAN PERCENT AUTO 1 % (0-1); LYMPHOCYTES ABSOLUTE AUTO 1.35 K/mm3 (0.84-5.20); LYMPHOCYTES PERCENT AUTO 12 % (21-46); MONOCYTES ABSOLUTE AUTO 0.93 K/mm3 (0.16-1.47); MONOCYTES PERCENT AUTO 8 % (4-13); Mean Corpuscular HGB 29.2 pg (26.0-34.0); Mean Corpuscular HGB Conc 33.5 g/dL (31.5-36.5); Mean Corpuscular Volume 87 fL (80-100); Mean Platelet Volume 9.2 fL (9.1-12.4); NEUTROPHILS ABSOLUTE AUTO 8.88 K/mm3 (1.96-9.15); NEUTROPHILS PERCENT AUTO 77 % (41-73); Platelet Count 372 K/mm3 (150-400); RDW Coefficient Variation 13.2 % (11.7-14.2); Red Blood Cell Count 3.08 M/mm3 (4.30-5.90); White Blood Cell Count 11.48 K/mm3 (4.00-11.30)
[2021-01-07 06:15] LABS: Albumin, Blood 2.2 g/dL (3.4-5.0); Anion Gap 6 mmol/L (6-16); Blood Urea Nitrogen 20 mg/dL (8-24); Bun/Creatinine Ratio 24.4 (12.0-20.0); CO2, Blood 26 mmol/L (21-32); Calcium, Blood 7.9 mg/dL (8.5-10.1); Chloride, Blood 100 mmol/L (98-108); Creatinine, Blood 0.82 mg/dL (0.60-1.20); Glomerular Filtration Rate >60 (60-); Glucose, Blood 222 mg/dL (70-99); Phosphorus, Blood 2.8 mg/dL (2.5-4.9); Potassium, Blood 4.1 mmol/L (3.5-5.5); Sodium, Blood 132 mmol/L (136-145)
--- NOTE | 2021-01-07 06:30 | NUR ---
SHIFT SUMMARY PT IS A 65 Y/O MALE, ADMITTED FOR UTI AND CURRENTLY AWAITING PLACEMENT. HE IS A&O X 1-2, MORE CONFUSED AT NIGHT, YELLS OUT FOR ANY NEEDS AND DOES NOT USE THE CALL LIGHT. PT WAS MEDICATED ONCE FOR A HARTMAN WITH TYLENOL. NO C/O NAUSEA OR SOB. VITAL SIGNS STABLE. NO ACUTE CHANGES IN PT CONDITION NOTED DURING THE NIGHT. WILL CONTINUE TO MONITOR AND TREAT PER EMAR UNTIL HAND OFF TO DAY SHIFT RN.
--- NOTE | 2021-01-07 17:47 | NUR ---
SHIFT SUMMARY NO ACUTE CHANGES THIS SHIFT. CUELLAR IN PLACE, PATENT AND DRAINING TO GRAVITY. DRESSING CHANGED ON COCCYX DUE TO EXCESS DRAINAGE AND BLEEDING. PT BEDREST TODAY DUE TO BEING UNABLE TO BEAR WEIGHT AND OVERALL FEELING WEAK. HAD A MOMENT OF YELLING OUT AND IRRITABILITY WHILE WORKING WITH O.T. THAT HAS RESOLVED. VERY FORGETFUL. VSS. RESTING QUIETLY IN BED WITH HIS CALL LIGHT IN REACH.
--- NOTE | 2021-01-08 05:25 | NUR ---
SHIFT SUMMARY: PATIENT IS A&O TO SELF AND PLACE, ABLE TO MAKE NEEDS KNOWN. PATIENT IS FORGETFUL. BED ALARM IS ON FOR SAFETY. VSS, TAKING PILLS IN APPLE SACE WITH WATER. COOPERATIVE WITH CARES AND STAFF. CUELLAR IS PATENT AND DRAING WITHOUT DIFFICULTY.
[2021-01-08 05:27] LABS: BASOPHILS ABSOLUTE AUTO 0.06 K/mm3 (0.00-0.23); BASOPHILS PERCENT AUTO 1 % (0-2); EOSINOPHILS ABSOLUTE AUTO 0.19 K/mm3 (0.00-0.68); EOSINOPHILS PERCENT AUTO 2 % (0-6); Hematocrit 24.6 % (37.0-53.0); Hemoglobin 8.4 g/dL (13.5-17.5); IMMATURE GRAN ABSOLUTE AUTO 0.05 K/mm3 (0.00-0.10); IMMATURE GRAN PERCENT AUTO 1 % (0-1); LYMPHOCYTES ABSOLUTE AUTO 1.57 K/mm3 (0.84-5.20); LYMPHOCYTES PERCENT AUTO 19 % (21-46); MONOCYTES ABSOLUTE AUTO 0.94 K/mm3 (0.16-1.47); MONOCYTES PERCENT AUTO 12 % (4-13); Mean Corpuscular HGB 29.5 pg (26.0-34.0); Mean Corpuscular HGB Conc 34.1 g/dL (31.5-36.5); Mean Corpuscular Volume 86 fL (80-100); Mean Platelet Volume 9.1 fL (9.1-12.4); NEUTROPHILS ABSOLUTE AUTO 5.27 K/mm3 (1.96-9.15); NEUTROPHILS PERCENT AUTO 65 % (41-73); Platelet Count 324 K/mm3 (150-400); RDW Coefficient Variation 13.3 % (11.7-14.2); RDW Standard Deviation 41.6 fL (35.1-46.3); Red Blood Cell Count 2.85 M/mm3 (4.30-5.90); White Blood Cell Count 8.08 K/mm3 (4.00-11.30)
[2021-01-08 06:04] LABS: Anion Gap 4 mmol/L (6-16); Blood Urea Nitrogen 20 mg/dL (8-24); Bun/Creatinine Ratio 23.6 (12.0-20.0); CO2, Blood 28 mmol/L (21-32); Chloride, Blood 103 mmol/L (98-108); Creatinine, Blood 0.85 mg/dL (0.60-1.20); Glomerular Filtration Rate >60 (60-); Glucose, Blood 184 mg/dL (70-99); Potassium, Blood 4.2 mmol/L (3.5-5.5); Sodium, Blood 135 mmol/L (136-145)
--- NOTE | 2021-01-08 17:01 | NUR ---
SHIFT SUMMARY. ALERT, ORIENATED TO SELF, , AND KNOWS THAT HE IS IN THE HOSPITAL. PT DOES NOT USE CALL LIGHT, INTENTIONAL ROUNDING AND ROUTINE TURNING COMPLETED. PT CONTINUES WITH SANGANEOUS DISCHARGE FROM URETHRA AROUND CUELLAR. PT DENIES PAIN, SOB, N/V. DRESSING TO COCCYX CHANGED. NO OTHER CHANGES OR CONCERNS.
--- NOTE | 2021-01-08 23:56 | NUR ---
: LARGE AMOUNT OF BLOOD IS COMING FROM PENIS, NO BLOOD IN CUELLAR. LAST H&H WAS 84.4/24.6. DR ONEILL IS NOTIFIED AND ORDER TO DRAWN AM LABS, INCLUDING A CBC, AT 0300. CONTINUE TO MONITOR BLEEDING.
[2021-01-09 03:35] LABS: Hematocrit 23.3 % (37.0-53.0); Mean Corpuscular HGB 29.5 pg (26.0-34.0); Mean Corpuscular HGB Conc 34.3 g/dL (31.5-36.5); Mean Corpuscular Volume 86 fL (80-100); Mean Platelet Volume 9.1 fL (9.1-12.4); Platelet Count 331 K/mm3 (150-400); RDW Coefficient Variation 13.3 % (11.7-14.2); RDW Standard Deviation 41.5 fL (35.1-46.3); Red Blood Cell Count 2.71 M/mm3 (4.30-5.90); White Blood Cell Count 9.86 K/mm3 (4.00-11.30)
[2021-01-09 03:50] LABS: Anion Gap 2 mmol/L (6-16); Blood Urea Nitrogen 21 mg/dL (8-24); Bun/Creatinine Ratio 23.1 (12.0-20.0); CO2, Blood 29 mmol/L (21-32); Calcium, Blood 8.1 mg/dL (8.5-10.1); Chloride, Blood 100 mmol/L (98-108); Creatinine, Blood 0.91 mg/dL (0.60-1.20); Glomerular Filtration Rate >60 (60-); Glucose, Blood 175 mg/dL (70-99); Potassium, Blood 4.1 mmol/L (3.5-5.5); Sodium, Blood 131 mmol/L (136-145)
--- NOTE | 2021-01-09 16:35 | NUR ---
SHIFT SUMMARY PATIENT DENIES PAIN, NAUSEA, AND SHORTNESS OF BREATH. PLEASANT AND COOPERATIVE WITH CARE. ABLE TO MAKE NEEDS KNOWN. CALLED OUT OCCASSIONALLY FOR . EASILY REDIRECTED. EATING AND DRINKING WELL. RESPOSITIONED Q2. CUELLAR OUTPUT HAS SMALL AMOUNT OF BLOOD THIS AFTERNOON. NO CLOTS NOTED AT THIS TIME.
--- NOTE | 2021-01-10 04:16 | NUR ---
SHIFT SUMMARY ASSUMED CARE OF PT AT 1900. PT IS A/O TO SELF. HEART SOUNDS REGULAR, LUNG SOUNDS CLEAR. PT HAD SMALL AMOUNTS OF BLOOD COMING FROM HIS PENIS, THERE WAS A LONG BLOOD CLOT IN THE CATHETER BAG AND URINE WAS DARK RED. THE URINE STARTED TO TURN YELLOW AROUND 0200. PT HAS AN ULCER ON HIS COCCYX, WOUND WAS CLEANED AND IT BLEED SMALL AMOUNT OF BLOOD. NEW DRESSING APPLIED. CALL LIGHT IN REACH, BED IN LOWEST POSTION.
--- NOTE | 2021-01-10 16:34 | NUR ---
SHIFT SUMMARY PATIENT DENIES PAIN, NAUSEA, AND SHORTNESS OF BREATH. TWO PERSON ASSIST FOR REPOSITION AND PERSONAL CARE. CUELLAR PATENT AND DRAINING CLEAR YELLOW URINE. NO BLOOD NOTED TODAY. NEW ORDER FOR NO IV ACCESS NEEDED.
--- NOTE | 2021-01-11 04:28 | NUR ---
SHIFT SUMMARY ASSUMED CARE OF PT AT 1900. PT IS A/OX2. PT WOULD SLAP HIS BELLY, HAND AND HEAD ALL NIGHT. PT DID NOT SLEEP AT ALL DURING THE NIGHT. HEART SOUDNS REGULAR, LUNG SOUNDS CLEAR. PT CATHETER IS DRAINING YELLOW URINE, PT MEATUS HAS MINIMAL RED DRAINAGE. PT DRESSING ON COCCYX IS C/D/I. CALL LIGHT IN REACH, BED IN LOWEST POSTION
--- NOTE | 2021-01-11 18:22 | NUR ---
SUMMARY- PT A/O X2, DEPENDANT IN CARE HAS A CUELLAR CATH FOR RETENTION. DRAINING MED-LT CLEAR YELLOW. BEDBOUND AND TURNED Q2. MEPELIX ON SACRUM INTACT. PT IS SET UP FOR MEALS, FEEDS SELF. TOLERATING INTAKE EATING CLOSE TO 100% EACH MEAL AND ADQ FLUIDS. NO BM TODAY. BLOOD SUGARS COVERED WITH SSRI. VSS. MEDS WITH APPLESAUCE SWALLOW INTACT. HERE TO VISIT A FEW HOURS THIS PM. WILL REPORT TO NORA ESTRADA.
--- NOTE | 2021-01-11 19:23 | NUR ---
PT RIPPED ON CUELLAR BLOOD CLOTS AND BLOOD ALL OVER ATTENDS, NURSE WAS CALLED INTO ROOM, ASSISTED NURSE WITH CARE, PT WAS SCREAMING AND TRYING TO KICK ASSISTED WITH COMFORTING THE PT WHILE NURSE WAS WORKING ON THE CUELLAR CARE.
--- NOTE | 2021-01-11 20:45 | NUR ---
184 THIS PM PT PULLED CUELLAR CAUSING LG AMOUNT OF BLEEDING AROUND MEATUS, CATH READVANCED TO ASSURE IN BLADDER AND FLUSHED WITH 450ML OF NS, UNABLE TO WITHDRAW CLOT. SEAN MELENDEZ SHIFT PRESENT AND TOOK OVER. I CALLED AND DR GOULD TO NOTIFY BOTH AND RECEIVED ORDER FOR TX.
--- NOTE | 2021-01-11 22:32 | NUR ---
PT had jerked on young cath & despite being able to irrigate could not remove urine young cath dc at 191
--- NOTE | 2021-01-11 22:35 | NUR ---
PT premed with urijet to replace young cath with CBI 3 way young due to obstruction. # [address] cath placed 20 ml NS in 30 ml bulb. Young drained 1000 ml bloody urine upon insertion. Mitt placed on PTs rt hand as well as rt wrist restraint to prevent removal of medical equipment. toleared fair did yell & cuss momentarily.
--- NOTE | 2021-01-12 03:05 | NUR ---
PT had pulled young partially out with large amts of clots & unable to drain bladder. Placed #[address] young to CBI & have CBI running at low rate. PT continues alert to self but has dementia & can be irritable with cares cursing & yelling. Had to place rt soft wrist & rt upper extremity to prevent young cath removal. informed by Day SEAN Klein.
--- NOTE | 2021-01-12 04:14 | NUR ---
SHIFT SUMMARY AWAKE, QUIET UNLESS SPOKEN TO. CBI CONTINUES WITH NOTED APPARENT HEMATURIA. MITT AND SOFT WRIST RESTRAINT REMAIN IN USE OF RIGHT HAND FOR SAFETY ISSUES HE PULLS AT THE CUELLAR AND DOES NOT REDIRECT. CALL LIGHT IN REACH.
[2021-01-12 05:45] LABS: Hematocrit 22.8 % (37.0-53.0); Hemoglobin 7.7 g/dL (13.5-17.5); Mean Corpuscular HGB 29.7 pg (26.0-34.0); Mean Corpuscular HGB Conc 33.8 g/dL (31.5-36.5); Mean Corpuscular Volume 88 fL (80-100); Mean Platelet Volume 9.5 fL (9.1-12.4); Platelet Count 345 K/mm3 (150-400); RDW Coefficient Variation 13.9 % (11.7-14.2); RDW Standard Deviation 43.2 fL (35.1-46.3); Red Blood Cell Count 2.59 M/mm3 (4.30-5.90); White Blood Cell Count 9.34 K/mm3 (4.00-11.30)
[2021-01-12 06:04] LABS: Anion Gap 4 mmol/L (6-16); Blood Urea Nitrogen 20 mg/dL (8-24); Bun/Creatinine Ratio 21.6 (12.0-20.0); CO2, Blood 27 mmol/L (21-32); Calcium, Blood 7.9 mg/dL (8.5-10.1); Chloride, Blood 100 mmol/L (98-108); Creatinine, Blood 0.93 mg/dL (0.60-1.20); Glomerular Filtration Rate >60 (60-); Glucose, Blood 169 mg/dL (70-99); Potassium, Blood 3.9 mmol/L (3.5-5.5); Sodium, Blood 131 mmol/L (136-145)
--- NOTE | 2021-01-12 12:51 | NUR ---
JEZ ESTRADA FROM [facility] IN [place] AT BEDSIDE TO INTERVIEW PATIENT FOR POSSIBLE ADMISSION.
--- NOTE | 2021-01-12 18:18 | NUR ---
SHIFT SUMMARY: NO ACUTE EVENTS. WAS ABLE TO D/C RESTRAINTS AT 1235 BEHAVIOR IMPROVED, BUT BILATERAL WRIST RESTRAINTS REAPPLIED AT 1802 HE PULLED CBI OFF AGAIN. GOOD URINE OUTPUT, CBI TITRATED TO CRANBERRY/PINK, HAS HAD SOME CLOTS. ORIENTED TO SELF ONLY, RECOGNIZED DURING HER VISIT. HAD INTERVIEW WITH [facility] RN TODAY, RESULTS NOT KNOWN. EATING 100% MEALS, NEEDS ASSISTANCE WITH MEALS. SACRAL WOUND IS UNSTAGEABLE, 5 X 1 X UNKNOWN, MALODOROUS, DRAINING; CLEANED, PHOTOGRAPHED, AND CHANGED DRESSING. WHEN IN PAIN OR BEING MOVED, HAS VOCAL OUTBURSTS AND CAN GRAB AT STAFF. DOES NOT FOLLOW DIRECTIONS.
[2021-01-13 05:07] LABS: BASOPHILS ABSOLUTE AUTO 0.05 K/mm3 (0.00-0.23); BASOPHILS PERCENT AUTO 1 % (0-2); EOSINOPHILS ABSOLUTE AUTO 0.31 K/mm3 (0.00-0.68); EOSINOPHILS PERCENT AUTO 4 % (0-6); Hematocrit 22.1 % (37.0-53.0); Hemoglobin 7.3 g/dL (13.5-17.5); IMMATURE GRAN ABSOLUTE AUTO 0.05 K/mm3 (0.00-0.10); IMMATURE GRAN PERCENT AUTO 1 % (0-1); LYMPHOCYTES ABSOLUTE AUTO 1.71 K/mm3 (0.84-5.20); LYMPHOCYTES PERCENT AUTO 20 % (21-46); MONOCYTES ABSOLUTE AUTO 0.97 K/mm3 (0.16-1.47); MONOCYTES PERCENT AUTO 11 % (4-13); Mean Corpuscular HGB 29.3 pg (26.0-34.0); Mean Corpuscular Volume 89 fL (80-100); Mean Platelet Volume 9.7 fL (9.1-12.4); NEUTROPHILS ABSOLUTE AUTO 5.68 K/mm3 (1.96-9.15); NEUTROPHILS PERCENT AUTO 65 % (41-73); Platelet Count 342 K/mm3 (150-400); RDW Coefficient Variation 14.1 % (11.7-14.2); RDW Standard Deviation 44.7 fL (35.1-46.3); Red Blood Cell Count 2.49 M/mm3 (4.30-5.90); White Blood Cell Count 8.77 K/mm3 (4.00-11.30)
[2021-01-13 05:33] LABS: Anion Gap 5 mmol/L (6-16); Blood Urea Nitrogen 18 mg/dL (8-24); Bun/Creatinine Ratio 22.1 (12.0-20.0); CO2, Blood 27 mmol/L (21-32); Chloride, Blood 99 mmol/L (98-108); Creatinine, Blood 0.81 mg/dL (0.60-1.20); Glomerular Filtration Rate >60 (60-); Glucose, Blood 243 mg/dL (70-99); Potassium, Blood 3.8 mmol/L (3.5-5.5); Sodium, Blood 131 mmol/L (136-145)
[2021-01-13 14:31] LABS: Source, Urine Catheter
[2021-01-13 14:38] LABS: Appearance, Urine Bloody (Clear); Bilirubin, Urine Neg (Neg); Blood, Urine 5+ (Neg); Color, Urine Red (P-Yellow); Glucose Qualitative, Urine 2+ (Neg); Ketones, Urine 1+ (Neg); Leukocyte Esterase, Urine 2+ (Neg); Nitrite, Urine Neg (Neg); Protein, Urine 3+ (Neg); Specific Gravity, Urine 1.015 (1.003-1.022); Urobilinogen, Urine NORM (Normal)
[2021-01-13 15:02] LABS: Red Blood Cells, Urine TNTC /hpf (0-2); White Blood Cells, Urine 25-50 /hpf (0-5)
[2021-01-13 15:04] LABS: Bacteria Many /hpf; Squamous Epithelial Cells Not Seen /hpf (Few)
--- NOTE | 2021-01-13 18:47 | NUR ---
SHIFT SUMMARY: NO ACUTE EVENTS. A&O X 1, BECAME MORE COOPERATIVE IN THE LATE AFTERNOON, SO RESTRAINTS D/C'D. CUELLAR DRAINING PINK TO CRANBERRY URINE; CBI STOPPED NO FURTHER CLOTS OBSERVED. EATING 100% OF MEALS WITH ASSISTANCE, TOLERATING WELL. NO BM TODAY. URINE SPECIMEN SENT; CULTURE PENDING. PER CM, PT LIKELY TO TRANSFER TO [facility] [place] ON MONDAY.
--- NOTE | 2021-01-13 21:08 | NUR ---
CALL TO HOSPITALIST RE: XARELTO AND GROSS HEMATURIA. RECEIVED OK TO HOLD XARELTO TONIGHT AND REQUEST CONTINUED MED HOLD BE DISCUSSED W/ MD DURING THE DAY TIME.
--- NOTE | 2021-01-14 04:22 | NUR ---
SHIFT SUMMARY: VSS. AFEB. A/OX1. WILL SUDDENLY YELL AND SWEAR AT STAFF DURING CARES. F/C PATENT AND DRAINING DARK CRANBERRY COLORED URINE W/ SMALL AMTS OF CLOTS. NO IRRIGATION NEEDED TONIGHT. XARELTO HELD PER HOSPITALIST INSTRUCTIONS. PT HAS NOT MADE OBSERVED ATTEMPTS TO PULL AT F/C. SLEEPING INTERMITTENTLY. PT SLAPS AT BELLY OR CHEST. UNABLE TO EXPLAIN REASON BUT DOES DENY PAIN. BED LOW, BED ALARM ON. NO ACUTE CHANGES OVERNIGHT. WCTM.
[2021-01-14 05:20] LABS: BASOPHILS ABSOLUTE AUTO 0.06 K/mm3 (0.00-0.23); BASOPHILS PERCENT AUTO 1 % (0-2); EOSINOPHILS PERCENT AUTO 3 % (0-6); Hematocrit 21.6 % (37.0-53.0); Hemoglobin 7.2 g/dL (13.5-17.5); IMMATURE GRAN ABSOLUTE AUTO 0.06 K/mm3 (0.00-0.10); IMMATURE GRAN PERCENT AUTO 1 % (0-1); LYMPHOCYTES ABSOLUTE AUTO 1.68 K/mm3 (0.84-5.20); LYMPHOCYTES PERCENT AUTO 19 % (21-46); MONOCYTES ABSOLUTE AUTO 1.13 K/mm3 (0.16-1.47); MONOCYTES PERCENT AUTO 13 % (4-13); Mean Corpuscular HGB 29.5 pg (26.0-34.0); Mean Corpuscular HGB Conc 33.3 g/dL (31.5-36.5); Mean Corpuscular Volume 89 fL (80-100); Mean Platelet Volume 9.8 fL (9.1-12.4); NEUTROPHILS ABSOLUTE AUTO 5.48 K/mm3 (1.96-9.15); NEUTROPHILS PERCENT AUTO 63 % (41-73); Platelet Count 328 K/mm3 (150-400); RDW Coefficient Variation 14.3 % (11.7-14.2); RDW Standard Deviation 45.2 fL (35.1-46.3); Red Blood Cell Count 2.44 M/mm3 (4.30-5.90); White Blood Cell Count 8.71 K/mm3 (4.00-11.30)
[2021-01-14 05:52] LABS: Anion Gap 3 mmol/L (6-16); Blood Urea Nitrogen 18 mg/dL (8-24); Bun/Creatinine Ratio 18.6 (12.0-20.0); CO2, Blood 28 mmol/L (21-32); Calcium, Blood 8.3 mg/dL (8.5-10.1); Chloride, Blood 101 mmol/L (98-108); Creatinine, Blood 0.97 mg/dL (0.60-1.20); Glomerular Filtration Rate >60 (60-); Glucose, Blood 132 mg/dL (70-99); Potassium, Blood 3.9 mmol/L (3.5-5.5); Sodium, Blood 132 mmol/L (136-145)
--- NOTE | 2021-01-14 18:17 | NUR ---
SHIFT SUMMARY PT AOX1-2. PT CUELLAR IS DRAINING- BUT CRANBERRY COLOR. NO CLOTS SEEN. PT DENIES PAIN, SOB OR ANY DISCOMFORT. DRESSING CHANGED TODAY- MEPELEX ON HIS BUTTOCKS AREA. BED IS IN THEW LOWEST POSITION AND CALL LIGHT WITHIN REACH
--- NOTE | 2021-01-15 03:59 | NUR ---
SHIFT SUMMARY: VSS. AFEB. A/OX1. DENIES PAIN. SLEPT INTERMITTENTLY. F/C PATENT AND DRAINING DARK CRANBERRY COLORED URINE W/ FEW CLOTS. NO OBSERVED ATTEMPTS TO PULL F/C. NO ACUTE CHANGES OVERNIGHT. WCTM.
[2021-01-15 05:24] LABS: Hematocrit 22.4 % (37.0-53.0); Hemoglobin 7.5 g/dL (13.5-17.5); Mean Corpuscular HGB 29.6 pg (26.0-34.0); Mean Corpuscular HGB Conc 33.5 g/dL (31.5-36.5); Mean Corpuscular Volume 89 fL (80-100); Mean Platelet Volume 9.6 fL (9.1-12.4); Platelet Count 316 K/mm3 (150-400); RDW Coefficient Variation 14.6 % (11.7-14.2); RDW Standard Deviation 46.1 fL (35.1-46.3); Red Blood Cell Count 2.53 M/mm3 (4.30-5.90); White Blood Cell Count 10.02 K/mm3 (4.00-11.30)
[2021-01-15 05:59] LABS: Anion Gap 6 mmol/L (6-16); Blood Urea Nitrogen 20 mg/dL (8-24); Bun/Creatinine Ratio 20.6 (12.0-20.0); CO2, Blood 26 mmol/L (21-32); Calcium, Blood 8.2 mg/dL (8.5-10.1); Chloride, Blood 101 mmol/L (98-108); Creatinine, Blood 0.97 mg/dL (0.60-1.20); Glomerular Filtration Rate >60 (60-); Glucose, Blood 115 mg/dL (70-99); Sodium, Blood 133 mmol/L (136-145)
--- NOTE | 2021-01-15 19:10 | NUR ---
ASSUMED CARE RECEIVED REPORT FROM SEAN GORMAN. PT LYING IN BED COMFORTABLY, IN NO ACUTE DISTRESS. NO ACUTE NEEDS ASSESSED AT THIS TIME. CALL LIGHT IN REACH AND BED ALARM ON.
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
--- NOTE | 2021-01-16 04:23 | NUR ---
SLICING MACHINE FEEDER SUMMARY PT ASLEEP, NO S/S DISTRESS NOTED. WAS AWAKE THROUGH MUCH OF THE NIGHT. VS REVIEWED,WNL. PT CONTINUES TO USE VULGAR LANGUAGE TOWARDS STAFF WHEN PROVIDING CARES, BUT WAS NOT PHYSICALLY AGGRESSIVE THIS SHIFT; RE-DIRECTABLE WHEN REMINDED THAT BEHAVIOR/LANGUAGE IS INAPPROPRIATE. CUELLAR CATHETER REMAINS PATENT, CONTINUES TO DRAIN CRANBERRY COLORED URINE, FREE OF CLOTS. PT VOICES NO C/O DISCOMFORT. NO OTHER ACUTE CHANGES IN CONDITION TO REPORT. NO ACUTE NEEDS ASSESSED AT THIS TIME. CALL LIGHT IN REACH, BED IN LOW POSITION WITH ALARMS ON AND SIDERAILS X3. WILL CONTINUE TO PROVIDE CARE UNTIL REPORT GIVEN TO ONCOMING RN.
[2021-01-16 05:22] LABS: BASOPHILS ABSOLUTE AUTO 0.05 K/mm3 (0.00-0.23); BASOPHILS PERCENT AUTO 1 % (0-2); EOSINOPHILS ABSOLUTE AUTO 0.36 K/mm3 (0.00-0.68); EOSINOPHILS PERCENT AUTO 4 % (0-6); Hematocrit 22.2 % (37.0-53.0); Hemoglobin 7.3 g/dL (13.5-17.5); IMMATURE GRAN ABSOLUTE AUTO 0.04 K/mm3 (0.00-0.10); IMMATURE GRAN PERCENT AUTO 0 % (0-1); LYMPHOCYTES ABSOLUTE AUTO 1.97 K/mm3 (0.84-5.20); LYMPHOCYTES PERCENT AUTO 22 % (21-46); MONOCYTES ABSOLUTE AUTO 1.12 K/mm3 (0.16-1.47); MONOCYTES PERCENT AUTO 13 % (4-13); Mean Corpuscular HGB 29.3 pg (26.0-34.0); Mean Corpuscular HGB Conc 32.9 g/dL (31.5-36.5); Mean Corpuscular Volume 89 fL (80-100); Mean Platelet Volume 9.2 fL (9.1-12.4); NEUTROPHILS ABSOLUTE AUTO 5.45 K/mm3 (1.96-9.15); NEUTROPHILS PERCENT AUTO 61 % (41-73); Platelet Count 342 K/mm3 (150-400); RDW Coefficient Variation 14.5 % (11.7-14.2); Red Blood Cell Count 2.49 M/mm3 (4.30-5.90); White Blood Cell Count 8.99 K/mm3 (4.00-11.30)
[2021-01-16 06:01] LABS: Anion Gap 3 mmol/L (6-16); Blood Urea Nitrogen 23 mg/dL (8-24); Bun/Creatinine Ratio 21.9 (12.0-20.0); CO2, Blood 28 mmol/L (21-32); Calcium, Blood 8.7 mg/dL (8.5-10.1); Chloride, Blood 104 mmol/L (98-108); Creatinine, Blood 1.05 mg/dL (0.60-1.20); Glomerular Filtration Rate >60 (60-); Glucose, Blood 84 mg/dL (70-99); Potassium, Blood 4.1 mmol/L (3.5-5.5); Sodium, Blood 135 mmol/L (136-145)
--- NOTE | 2021-01-16 18:39 | NUR ---
PT RECEIVED HUMULIN INSULIN 2X TO TREAT CBG'S; ATE 2 ADA DIET SNACKS AND 100% OF ALL MEALS SERVED. PT'S VISITED AND RECEIVED UPDATES TO PLAN OF CARE. CUELLAR IRRIGATED 2X AND URINE INTERMITTENTLY CRANBERRY COLORED. PT TURNED Q2H. PT DENIES ADDITIONAL CONCERNS AT THIS TIME.
--- NOTE | 2021-01-16 19:10 | NUR ---
ASSUMED CARE RECEIVED REPORT FROM SEAN SCOTT. PT RESTING, IN NO ACUTE DISTRESS. DENIES NEEDS. CALL LIGHT, POSSESSIONS IN REACH, BED IN LOW POSITION WITH ALARMS ON.
[2021-01-17 05:18] LABS: Mean Corpuscular HGB 29.5 pg (26.0-34.0); Mean Corpuscular HGB Conc 33.3 g/dL (31.5-36.5); Mean Corpuscular Volume 89 fL (80-100); Mean Platelet Volume 9.2 fL (9.1-12.4); Platelet Count 396 K/mm3 (150-400); RDW Coefficient Variation 14.6 % (11.7-14.2); RDW Standard Deviation 46.7 fL (35.1-46.3); Red Blood Cell Count 2.71 M/mm3 (4.30-5.90); White Blood Cell Count 9.06 K/mm3 (4.00-11.30)
--- NOTE | 2021-01-17 07:04 | NUR ---
MEDICAL PHYSICS TEACHER SUMMARY PT ASLEEP, IN NO ACUTE DISTRESS. VS REVIEWED,WNL. PT HAS HAD NO ACUTE CHANGES IN CONDITION OVERNIGHT, RECEIVED A COMPLETE BED BATH, TOLERATED WELL. MINIMAL BEHAVIORAL OUTBURSTS. 3-WAY CUELLAR CATHETER PATENT, DRAINING TEA COLORED URINE TO GRAVITY, TUBING FREE OF KINKS, NO CLOTS NOTED. PT DENIES PAIN OR NEEDS. CALL LIGHT, POSSESSIONS IN REACH, BED IN LOW POSITION WITH ALARMS ON. REPORT GIVEN TO EYAL Davis RN.
--- NOTE | 2021-01-17 16:46 | NUR ---
SHIFT SUMMARY NO ACUTE CHANGES NOTED TO PT THIS SHIFT. PT AAO TO SELF ONLY, PLEASANTLY CONFUSED, REDIRECTABLE, ABLE TO FOLLOW SIMPLE INSTRUCTIONS FROM STAFF. PT MEDICATED FOR PAIN PER EMAR. NO C/O CP / SOB / N&V. CUELLAR PATENT AND DRAINING WELL, PT DENIES DYSURIA. BED AT LOWEST POSITION W/ ALARM ON. CALL LIGHT WITHIN REACH.
--- NOTE | 2021-01-17 19:10 | NUR ---
ASSUMED CARE RECEIVED REPORT FROM EYAL Davis RN. PT RESTING, IN NO ACUTE DISTRESS. DENIES PAIN OR NEEDS, CALL LIGHT IN REACH AND BED IN LOW POSITION WITH ALARMS ON.
--- NOTE | 2021-01-18 05:30 | NUR ---
DR. ONEILL NOTIFIED OF PT'S DECREASED URINE OUTPUT, AND BLADDER SCAN OF 1,000ML. ORDERS RECEIVED.
--- NOTE | 2021-01-18 07:15 | NUR ---
CRIME LABORATORY ANALYST SUMMARY PT RESTING, IN NO ACUTE DISTRESS. VS REVIEWED,WNL. [address] [place] 3-WAY CUELLAR CATHETER IN PLACE, CONTINUOUS BLADDER IRRIGATION ONGOING, DRAINING DARK, CRANBERRY COLORED URINE, MODERATE AMOUNT OF CLOTS NOTED. PT STATES BLADDER DISCOMFORT IS IMPROVED. PT HAS BEEN SLEEPING ON AND OFF THROUGH THE NIGHT, CONTINUES TO HAVE OCCASIONAL OUTBURSTS OF FOUL LANGUAGE AND AGGRESSION TOWARDS STAFF. PT APPEARS COMFORTABLE AT THIS TIME, NO ACUTE NEEDS ASSESSED. CBI ONGOING. CALL LIGHT, POSSESSIONS IN REACH, BED IN LOW POSITION WITH ALARMS ON. REPORT GIVEN TO SEAN CARSON.
--- NOTE | 2021-01-18 08:07 | NUR ---
PULLING AT LINES: WOODS WARDEN RN HEARD NOISES COMING FROM PATIENT'S ROOM. PATIENT WAS PULLING AT HIS CUELLAR CATHETER AND HAD KNOCKED OVER THE CONTINUOUS BLADDER IRRIGATION POLE OVER. PATIENT HAS BLOODY DISCHARGE FROM THE MEATUS. PATIENT HAS CLEAR, BECK RED OUTPUT IN CUELLAR CATHETER BAG. NO CLOTS IN BAD NOTED AT THIS TIME. PATIENT IS ALERT TO SELF ONLY. UNABLE TO REORIENT TO NOT PULL ON LINES. DISCUSSED WITH DR. ORNELAS. NEW ORDER FOR RESTRAINTS. PATIENT CALM WITH RESTRAINTS. PATIENT YELLS AT STAFF OBSENITIES DURING CARE. PATIENT CALM ONCE CARE IS DONE.
--- NOTE | 2021-01-18 09:57 | NUR ---
DISCONTINUATION OF RESTRAINTS. PATIENT BECAME CALM AFTER PATIENT RECEIVED BREAKFAST AND CALMING INTERACTIONS WITH STAFF. PANTS PLACED ON THE PATIENT TO HID THE CUELLAR CATH. IRRIGATION FLUID POLE MOVED OUT OF REACH. CALMING MUSIC ON THE T.V. PROVIDED WITH A QUIET ENVIRONMENT. PATIENT CALMLY ATE BREAKFAST AND IS CALMLY SLEEPING. DISCUSSED WITH DR. ORNELAS. NO NEED FOR RESTRAINTS AT THIS TIME.
--- NOTE | 2021-01-18 19:29 | NUR ---
END OF SHIFT SUMMARY: PATIENT EXPERIENCED SOME AGITATION THIS MORNING THAT CONCERNED RN OF RISK OF PULLING OUT THE CURRENT CUELLAR CATHETER (GRABBING AT CATHETER, YELLING AT STAFF, AND KNOCKING OVER EQUIPMENT). ORDER FOR RESTRAINTS OBTAINED. HOWEVER, WITH STAFF PROVIDING CALM ENCOURAGEMENT, PLACING PANTS ON THE PATIENT, AND MOVING EQUIPMENT OUT OF REACH, RESTRAINTS WERE REMOVED. PATIENT CALM AND COOPERATIVE WITH CARE THROUGHOUT THE DAY. PATIENT CONTINUED TO YELL OUT OBSCENITIES WITH SOME CARE (EX: PLACING STRAIGHT CATH, INSULIN INJECTIONS), BUT DID NOT ATTEMPT TO STRIKE OR KICK STAFF. PATIENT OVERALL COMPLIANT WITH CARE AND QUICKLY CALMED DOWN WITH STAFF ENCOURAGEMENT AND CESSATION OF CARE. PATIENT HAD AN EXCELLENT APPETITE. PATIENT SLEPT MOST OF THE DAY. CUELLAR CATHETER DISCONTINUED UNDER DR. ORNELAS'S DIRECTION AFTER URINE CLEARED TO A LIGHT YELLOW IN CATHETER LINE. PATIENT ABLE TO HAVE AN INCONTINENT VOID, BUT STILL HAD A RESIDUAL OF [id number]. NEW ORDER FOR BLADDER SCAN AND STRAIGHT CATH. PATIENT TOLERATED STRAIGHT CATH WELL. URINE WAS A CLEAR BROWN COLOR WITH MINIMAL TO NO SEDIMENT/CLOTS.
--- NOTE | 2021-01-19 04:22 | NUR ---
SHIFT SUMMARY: VSS. AFEB. AAOX1. NO SPONTANEOUS VOIDS SO FAR TONIGHT. STRAIGHT CATHED PER ORDERS W/ TEA COLORED URINE AND SMALL FLECKS OF BLOOD CLOTS PRESENT. SMALL AMTS OF NGUYỄN BLOOD OBSERVED FROM URETHRAL MEATUS OPENING. PT SLEEPING MOST OF THE NIGHT. NO ACUTE EVENTS OVERNIGHT. WCTM.
[2021-01-19 05:08] LABS: Hematocrit 22.1 % (37.0-53.0); Hemoglobin 7.2 g/dL (13.5-17.5); Mean Corpuscular HGB Conc 32.6 g/dL (31.5-36.5); Mean Corpuscular Volume 89 fL (80-100); Mean Platelet Volume 9.6 fL (9.1-12.4); Platelet Count 361 K/mm3 (150-400); RDW Coefficient Variation 14.5 % (11.7-14.2); RDW Standard Deviation 46.9 fL (35.1-46.3); Red Blood Cell Count 2.48 M/mm3 (4.30-5.90); White Blood Cell Count 9.84 K/mm3 (4.00-11.30)
[2021-01-19 05:31] LABS: Anion Gap 4 mmol/L (6-16); Blood Urea Nitrogen 28 mg/dL (8-24); CO2, Blood 27 mmol/L (21-32); Calcium, Blood 8.2 mg/dL (8.5-10.1); Chloride, Blood 104 mmol/L (98-108); Glomerular Filtration Rate >60 (60-); Glucose, Blood 111 mg/dL (70-99); Potassium, Blood 4.3 mmol/L (3.5-5.5); Sodium, Blood 135 mmol/L (136-145)
--- NOTE | 2021-01-19 17:34 | NUR ---
SUMMARY PT RESTING QUIETLY IN BED, WAKES EASILY, EASILY AGITATED, PT REMAINS CONFUSED BUT MOSTLY COOPERATIVE, BLADDER SCAN AND STRAIGHT CATH Q6, CARE MANAGEMENT WORKING ON A SAFE DISCHARGE PLAN, WILL CONT TO MONITOR
[2021-01-20 05:23] LABS: Hematocrit 24.1 % (37.0-53.0); Hemoglobin 7.8 g/dL (13.5-17.5); Mean Corpuscular HGB 28.6 pg (26.0-34.0); Mean Corpuscular HGB Conc 32.4 g/dL (31.5-36.5); Mean Corpuscular Volume 88 fL (80-100); Platelet Count 408 K/mm3 (150-400); RDW Coefficient Variation 14.3 % (11.7-14.2); RDW Standard Deviation 45.4 fL (35.1-46.3); Red Blood Cell Count 2.73 M/mm3 (4.30-5.90); White Blood Cell Count 10.08 K/mm3 (4.00-11.30)
--- NOTE | 2021-01-20 07:03 | NUR ---
SHIFT SUMMARY PT IS A 65 Y/O MALE, ADMITTED FOR UTI AND CURRENTLY AWAITING PLACEMENT. HE IS A&O X SELF ONLY, VERY EASILY AGITATED AND COMBATIVE WITH STAFF AT TIMES. NO C/O ACUTE PAIN, NAUSEA OR SOB. VITAL SIGNS STABLE. PT IS BLADDER SCAN/STRAIGHT CATH Q6. AT MIDNIGHT, PT WAS APPROXIMATELY 640 ML OF URINE IN BLADDER. STRAIGHT CATH WAS ATTEMPTED TWICE UNSUCCESSFULY. THIS AM, STRAIGHT CATH WAS ATTEMPTED AGAIN, AND SUCCESSFUL ON SECOND TRY. NO OTHER ACUTE CHANGES IN PT CONDITION NOTED DURING THE NIGHT. WILL CONTINUE TO MONITOR AND TREAT PER EMAR UNITL HAND OFF TO DAY SHIFT RN.
[2021-01-20 11:52] LABS: Source, Urine Catheter
[2021-01-20 12:32] LABS: Bilirubin, Urine Neg (Neg); Blood, Urine 3+ (Neg); Glucose Qualitative, Urine 2+ (Neg); Ketones, Urine Neg (Neg); Leukocyte Esterase, Urine Neg (Neg); Nitrite, Urine Neg (Neg); Protein, Urine 1+ (Neg); Specific Gravity, Urine 1.015 (1.003-1.022); Urobilinogen, Urine NORM (Normal)
[2021-01-20 12:44] LABS: Appearance, Urine Clear (Clear); Color, Urine Pale Yellow (P-Yellow)
[2021-01-20 12:45] LABS: Bacteria Rare /hpf; Squamous Epithelial Cells Rare /hpf (Few); White Blood Cells, Urine 0-2 /hpf (0-5)
--- NOTE | 2021-01-20 17:17 | NUR ---
SUMMARY PT RESTING QUIETLY IN BED WATCHING TV, PT REMAINS CONFUSED, CUELLAR PLACED TODAY PER DR ORNELAS FOR RETENTION, PT REMAINS FIDGETY AND RESTLESS, CATHETER REMAINS IN PLACE, PT FREQUENTLY REMINDED TO LEAVE TUBE ALONE, CAME IN TO VISIT, PLAN TO GO TO [facility] IN THE NEXT WEEK, VSS, WILL CONTINUE TO MONITOR
--- NOTE | 2021-01-20 22:16 | NUR ---
Carmen Wheeler NP called for soft wrist restraint to prevent young cath removal.
--- NOTE | 2021-01-21 06:17 | NUR ---
PT continues to need rt soft wrist restraint due to dementia & he repeatedly removes young cath multile times. He removed cath secure several times & pulling on young tubing despite rt wrist restraint. PT continues with stage 2 or 3 coccyx decub with foul smell present. wound care completed. PT can be labile curses with cares & made threats to staff with turning repostioning. Cooperative with meds whole in applesauce. Hollers out frequently.
--- NOTE | 2021-01-22 04:23 | NUR ---
SUMMARY NO NEW ISSUES NOTED. PT REMAINS CONFUSED AND HAS BEEN PLESANT THIS SHIFT. PT CUELLAR DRAINING WELL. PT CURRENTLY SLEEPING IN NO DISTRESS. CALL LIGHT IN REACH.
[2021-01-22 05:30] LABS: Hematocrit 24.5 % (37.0-53.0); Mean Corpuscular HGB 28.6 pg (26.0-34.0); Mean Corpuscular HGB Conc 32.7 g/dL (31.5-36.5); Mean Corpuscular Volume 88 fL (80-100); Mean Platelet Volume 9.2 fL (9.1-12.4); Platelet Count 453 K/mm3 (150-400); RDW Standard Deviation 44.9 fL (35.1-46.3); White Blood Cell Count 11.37 K/mm3 (4.00-11.30)
[2021-01-22 05:55] LABS: Anion Gap 4 mmol/L (6-16); Blood Urea Nitrogen 22 mg/dL (8-24); Bun/Creatinine Ratio 22.5 (12.0-20.0); CO2, Blood 28 mmol/L (21-32); Calcium, Blood 8.5 mg/dL (8.5-10.1); Chloride, Blood 104 mmol/L (98-108); Creatinine, Blood 0.98 mg/dL (0.60-1.20); Glomerular Filtration Rate >60 (60-); Glucose, Blood 106 mg/dL (70-99); Potassium, Blood 4.1 mmol/L (3.5-5.5); Sodium, Blood 136 mmol/L (136-145)
--- NOTE | 2021-01-23 05:08 | NUR ---
SUMMARY PT HAD NO NEW ISSUES. PT CUELLAR DRAINING WELL. PT CONTINUES TO HAVE RIGHT ARM RESTRAINED. PT CURRENTLY SLEEPING. CALL LIGHT IN REACH AND BED ALARM ON.
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
--- NOTE | 2021-01-24 04:03 | NUR ---
SHIFT SUMMARY PT HAS BEEN AWAKE FOR A GOOD PORTION OF THE SHIFT, YELLING AND CALLING OUT TO HIS . PT MORE AWAKE AT THE START OF THE SHIFT. HE WAS ABLE TO TELL ME IS WAS IN THE HOSPITAL, BUT THE NIGHT PROGRESSED HE BECAME MORE CONFUSED AND UNAWARE OF WHERE HE WAS. PT LABILE, HE CAN BE PLESANT ONE MINUTE AND THEN HAVE AN OUTBURST THE NEXT. PT CAN BE COMBATIVE. THE RISK REMAINS THAT PT MAY PULL OUT CATHETER WITHOUT R WRIST RESTRAINT. RESTRAINT REMAINS IN PLACE TO PROTECT CUELLAR TUBING. CUELLAR PATENT AND DRAINING, VITALS STABLE. BED IN LOWEST POSITION, CALL LIGHT WITHIN REACH.
--- NOTE | 2021-01-24 18:40 | NUR ---
SHIFT SUMMARY- PT IS A/O, PLESANT AND COOPERATIVE. HE IS EATING AND DRINKING WELL. HIS CUELLAR IS PATIENT AND DRAINING. HE IS IN A SOFT RESTRAINT TO PREVENT HIM FROM PULLING OUT HIS CUELLAR. HIS BED IS IN THE LOW POSITION AND CALL LIGHT IS WITHIN REACH.
--- NOTE | 2021-01-25 04:46 | NUR ---
SHIFT SUMMARY PT HAS RESTED OFF AND ON T/O SHIFT. PT CONFUSED, A/O TO SELF. SOFT RESTRAINT REMAINS IN PLACE TO RIGHT WRIST TO PREVENT PT FROM PULLING OUT CUELLAR CATHETER. PRESSURE ULCER ON COCCYX, WOUND CLEANED AND REDRESSED. NO ACUTE CHANGES OVERNIGHT, VITALS STABLE. PLAN IS FOR DC TO [facility] TODAY. BED IN LOWEST POSITION, CALL LIGHT WITHIN REACH.
[2021-01-25] MEDS ORDERED: ASCO500 PO (09:17)
[2021-01-25] MEDS ORDERED: ACET325 PO (09:17)
[2021-01-25] MEDS ORDERED: CALCIUM CARBON500 M2 PO (09:19)
[2021-01-25] MEDS ORDERED: DOCU100 PO (09:19)
[2021-01-25] MEDS ORDERED: FEROSUL325 M1 PO (09:20)
[2021-01-25] MEDS ORDERED: SENN187 PO (09:21)
[2021-01-25] MEDS ORDERED: TAMS.4ER PO (09:21)
--- NOTE | 2021-01-25 12:28 | NUR ---
CALLED [facility] IN [place] AND GAVE REPORT TO PEDRO ESTRADA. NOTIFIED OF PRESURE ULCER AND DRESSING CHANGED LAST NIGHT. CUELLAR INTACT, CHANGED 01/20. WILL SENT WITH [facility] TO PROTECT CUELLAR. WILL SEND WITH ALL BELONGINGS. HAVE NOT SEEN TRANSPORT PLANNED AT 1130. CALLED ARIEL TELLEZ TO F/U.
--- NOTE | 2021-01-25 16:14 | NUR ---
PT DC'D TO [facility] IN [facility] SET UP TRANSPORT. ASKED RN IF WHEEL CHAIR WAS OK. RN STATED PT BEDBOUND THAT STRETCHER WOULD BE PREFERRED. CALLED RN BACK WITH INFORMATION PT WOULD TX IN RECLINING W/C NOT OPTIONAL FOR PT BUT AN AND SS SAVING ON COST OF TRANSPORT. PT UP IN W/C 2 PERSON CHRISTA LIFT INTO RELCINING CHAIR WITHOUT INCIDENT. PT HAD A HARD TIME KEEPING FEET ON THE RESTS. MINE UTILITY OPERATOR STATES ON THE WAY TO THE [facility] HE KEPT SLIDING HIS BOTTOM DOWN IN THE CHAIR. RN CALLED PEDRO MOREAU RN AT [facility] AND INFORMED HIM THAT PT WAS IN TRANSPORT AND THAT HE WAS IN A RECLINING W/C AND TO BE PREPAIRED TO CHRISTA HIM OUT OF THE CHAIR. PT SENT WITH A [facility] ON THE R HAND TO PROTECT CUELLAR CATH TUBE.
== END 2021-01-25 13:24 | DRG 682 ==
LOC: ER 05:11 → MEDS 08:16 → ENPENDDIS 01-25 09:27 → MEDS 01-25 13:24
PROVIDERS: Emergency Medicine; Family Medicine; Internal Medicine; Student in an Organized Health Care Education/Training Program; ADMIT Internal Medicine
DX: N17.9 Acute kidney failure, unspecified (principal); G92 Toxic encephalopathy; N39.0 Urinary tract infection, site not specified; G82.20 Paraplegia, unspecified; Z66 Do not resuscitate; E87.2 Acidosis; E87.1 Hypo-osmolality and hyponatremia; N13.8 Other obstructive and reflux uropathy; G35 Multiple sclerosis; Z20.822 Contact with and (suspected) exposure to COVID-19; B96.1 Klebsiella pneumoniae [K. pneumoniae] as the cause of diseases classified elsewhere; T83.091A Other mechanical complication of indwelling urethral catheter, initial encounter; E86.9 Volume depletion, unspecified; N13.39 Other hydronephrosis; E83.39 Other disorders of phosphorus metabolism; N40.1 Benign prostatic hyperplasia with lower urinary tract symptoms; L89.152 Pressure ulcer of sacral region, stage 2; L89.102 Pressure ulcer of unspecified part of back, stage 2; M54.9 Dorsalgia, unspecified; I10 Essential (primary) hypertension; E11.9 Type 2 diabetes mellitus without complications; L89.150 Pressure ulcer of sacral region, unstageable; R31.0 Gross hematuria; B95.2 Enterococcus as the cause of diseases classified elsewhere; D63.8 Anemia in other chronic diseases classified elsewhere; F01.50 Vascular dementia, unspecified severity, without behavioral disturbance, psychotic disturbance, mood disturbance, and anxiety; E78.5 Hyperlipidemia, unspecified; G89.29 Other chronic pain; Z78.1 Physical restraint status; F39 Unspecified mood [affective] disorder; Z88.8 Allergy status to other drugs, medicaments and biological substances; Z79.82 Long term (current) use of aspirin; Z79.4 Long term (current) use of insulin; Z86.73 Personal history of transient ischemic attack (TIA), and cerebral infarction without residual deficits; Z79.899 Other long term (current) drug therapy; Z87.891 Personal history of nicotine dependence; Z98.890 Other specified postprocedural states; Z79.01 Long term (current) use of anticoagulants; Y84.6 Urinary catheterization as the cause of abnormal reaction of the patient, or of later complication, without mention of misadventure at the time of the procedure
CPT/HCPCS: 0241U; 36415; 51701; 71045; 74176; 80048; 80053; 80069; 81001; 82607; 82728; 82746; 82947; 83540; 83550; 83605; 85014; 85018; 85025; 85027; 87040; 87070; 87075; 87076; 87077; 87086; 87185; 87186; 87205; 93005; 93010; 96365; 97110; 97162; 97166; 97530; 97535; 99285-25; A9270; J0696; J1815; J7030; J7050